=== PATIENT | female | born 1935 | race Caucasian/White ===

== ENCOUNTER 2017-03-30 09:42 | Inpatient (IN) | payer MEDICARE ==
[~2017-03-30] VITALS: Ht 154.9 cm; Wt 78.1 kg
--- NOTE | 2017-03-30 09:58 | EKG ---
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
[2017-03-30] MEDS ORDERED: IPRATRPIUM/ALBUTEROL 0.5/2.5MG 3 ML NEBU. NEB ONE (10:15)
[2017-03-30] MEDS ORDERED: fentaNYL PF VIAL 100 MCG/2 ML VIAL IV ONE (10:15)
[2017-03-30 10:19] LABS: BASO # 0.1 x10^3/uL (0.0-0.2); BASO % 2 % (0-3); EOS % 3 % (0-3); HEMATOCRIT 31.7 % (36.0-47.0); HEMOGLOBIN 10.7 g/dL (12.0-15.5); LYMPH # 1.1 x10^3/uL (1.0-4.8); LYMPH % 26 % (24-48); MEAN CORPUSCULAR HEMOGLOBIN 30 pg (25-35); MEAN CORPUSCULAR HGB CONC 34 g/dL (31-37); MEAN CORPUSCULAR VOLUME 90 fL (79-100); MONO % 8 % (0-9); NEUT % 62 % (31-73); PLATELET COUNT 216 x10^3/uL (140-400); RED BLOOD COUNT 3.53 x10^6/uL (3.50-5.40); RED CELL DISTRIBUTION WIDTH 15.9 % (11.5-14.5)
--- NOTE | 2017-03-30 10:24 | PHYS DOC ---
Past Medical History Past Medical History: CHF, GERD, High Cholesterol, Hypertension, Renal Failure , UTI, Other Additional Past Medical Histor: LYMPHEDEMA, COMMUNICATION COG DEFICIT Past Surgical History: Hip Replacement, Hysterectomy, Other Additional Past Surgical Histo: RECTAL PROLAPSE, KIDNEY TRANSPLANT, BILAT HIP REP, KIDNEY BIOPSY,R ARM FIST Alcohol Use: None Drug Use: None Adult General Chief Complaint Chief Complaint: SHORTNESS OF BREATH HPI HPI Patient is a 81 year old female presenting to the emergency department from [facility] for evaluation of chest pain and shortness of breath that started approximately 2 hours prior to arrival. Patient says that she was at rest and all this started and felt chest squeezing in the center for chest with no radiation that made her feel short of breath. There was no nausea vomiting or diaphoresis. Patient had surgery last week for prolapsed rectum. It appears she has had several recent falls as well as she has bruising on her right knee and significant swelling in her extremities. She says that she has a history of kidney transplant. She denies any heart problems such as heart attack or congestive heart failure. She says that she had normal heart catheterization and stress test approximately 12 years ago before her kidney transplant. She was given a full dose aspirin by EMS. She is in no obvious distress with normal vital signs. Review of Systems Review of Systems Constitutional: Denies fever or chills [] Eyes: Denies change in visual acuity, redness, or eye pain [] HENT: Denies nasal congestion or sore throat [] Respiratory: Denies cough. + shortness of breath [] Cardiovascular: +CP GI: Denies abdominal pain, nausea, vomiting, bloody stools or diarrhea [] : Denies dysuria or hematuria [] Musculoskeletal: Denies back pain or joint pain [] Integument: Denies rash or skin lesions [] Neurologic: Denies headache, focal weakness or sensory changes [] Current Medications Current Medications Current Medications Medications (Trade) Dose Ordered Sig/Pallavi Start Time Stop Time Status Last Admin Dose Admin Albuterol/ Ipratropium (Duoneb) 3 ml 1X ONCE 03/30/17 10:15 03/30/17 10:16 DC 03/30/17 10:03 3 ML Fentanyl Citrate (Fentanyl 2ml Vial) 50 mcg PRN Q1HR PRN 03/30/17 10:45 03/31/17 10:44 Heparin Sodium (Porcine) (Heparin 5,000 Units/1,000ml NS) 4,000 unit 1X ONCE 03/30/17 10:45 03/30/17 10:46 Cancel Heparin Sodium/ Dextrose 500 ml @ 0 mls/hr 1X ONCE 03/30/17 10:45 03/30/17 10:52 DC 03/30/17 11:38 19.9 MLS/HR Ondansetron HCl (Zofran) 4 mg PRN Q8HRS PRN 03/30/17 10:45 03/31/17 10:44 Allergies Allergies Allergies Coded Allergies Type Severity Reaction Last Updated Verified Iodine and Iodide Containing Produc Allergy Intermediate 03/30/17 Yes adhesive tape Allergy Intermediate RASH 03/30/17 Yes clarithromycin Allergy Intermediate 03/30/17 Yes erythromycin base Allergy Intermediate 03/30/17 Yes latex Allergy Intermediate RASH 03/30/17 Yes levofloxacin Allergy Intermediate 03/30/17 Yes povidone-iodine Allergy Intermediate 03/30/17 Yes soap Allergy Intermediate 03/30/17 Yes Physical Exam Physical Exam Constitutional: Well developed, well nourished, no acute distress, non-toxic appearance. [] HENT: Normocephalic, atraumatic, bilateral external ears normal, oropharynx moist, no oral exudates, nose normal. [] Eyes: PERRLA, EOMI, conjunctiva normal, no discharge. [] Neck: Normal range of motion, no tenderness, supple, no stridor. [] Cardiovascular:Heart rate regular rhythm, no murmur [] Lungs & Thorax: Bilateral breath sounds with good aeration, trace exp wheeze noted, few crackles Abdomen: Bowel sounds normal, soft, no tenderness, no masses, no pulsatile masses. [] Skin: Warm, dry, no erythema, no rash. [] Back: No tenderness, no CVA tenderness. [] Extremities: No tenderness, no cyanosis, no clubbing, ROM intact, 2+ edema BL. [ ] Neurologic: Alert and oriented X 3, normal motor function, normal sensory function, no focal deficits noted. [] Current Patient Data Vital Signs Vital Signs Date Time Temp Pulse Resp B/P (MAP) Pulse Ox O2 Delivery O2 Flow Rate FiO2 03/30/17 11:00 72 20 150/68 (95) 96 Room Air 03/30/17 09:42 99.2 99.2 Lab Values Laboratory Tests Test 03/30/17 09:50 03/30/17 10:40 White Blood Count 4.0 x10^3/uL (4.0-11.0) Red Blood Count 3.53 x10^6/uL (3.50-5.40) Hemoglobin 10.7 g/dL (12.0-15.5) L Hematocrit 31.7 % (36.0-47.0) L Mean Corpuscular Volume 90 fL (79-100) Mean Corpuscular Hemoglobin 30 pg (25-35) Mean Corpuscular Hemoglobin Concent 34 g/dL (31-37) Red Cell Distribution Width 15.9 % (11.5-14.5) H Platelet Count 216 x10^3/uL (140-400) Neutrophils (%) (Auto) 62 % (31-73) Lymphocytes (%) (Auto) 26 % (24-48) Monocytes (%) (Auto) 8 % (0-9) Eosinophils (%) (Auto) 3 % (0-3) Basophils (%) (Auto) 2 % (0-3) Neutrophils # (Auto) 2.5 x10^3uL (1.8-7.7) Lymphocytes # (Auto) 1.1 x10^3/uL (1.0-4.8) Monocytes # (Auto) 0.3 x10^3/uL (0.0-1.1) Eosinophils # (Auto) 0.1 x10^3/uL (0.0-0.7) Basophils # (Auto) 0.1 x10^3/uL (0.0-0.2) Prothrombin Time 12.5 SEC (11.7-14.0) Prothrombin Time INR 1.0 (0.8-1.1) PTT 27 SEC (24-38) D-Dimer (Gauri) 3.95 ug/mlFEU (0.00-0.50) H Sodium Level 141 mmol/L (136-145) Potassium Level 4.1 mmol/L (3.5-5.1) Chloride Level 107 mmol/L (98-107) Carbon Dioxide Level 25 mmol/L (21-32) Anion Gap 9 (6-14) Blood Urea Nitrogen 33 mg/dL (7-20) H Creatinine 1.5 mg/dL (0.6-1.0) H Estimated GFR (Cockcroft-Gault) 33.5 BUN/Creatinine Ratio 22 (6-20) H Glucose Level 130 mg/dL (70-99) H Calcium Level 8.4 mg/dL (8.5-10.1) L Magnesium Level 1.9 mg/dL (1.8-2.4) Total Bilirubin 0.5 mg/dL (0.2-1.0) Aspartate Amino Transferase (AST) 18 U/L (15-37) Alanine Aminotransferase (ALT) 15 U/L (14-59) Alkaline Phosphatase 49 U/L (46-116) Creatine Kinase 23 U/L (26-192) L Troponin I Quantitative 0.060 ng/mL (0.000-0.055) CQ-Uqg-V-Type Natriuretic Peptide 6608 pg/mL (0-449) H Total Protein 4.2 g/dL (6.4-8.2) L Albumin 1.9 g/dL (3.4-5.0) L Albumin/Globulin Ratio 0.8 (1.0-1.7) L Thyroid Stimulating Hormone (TSH) 4.019 uIU/mL (0.358-3.74) H Urine Collection Type U cath Urine Color Yellow Urine Clarity Turbid Urine pH 5.5 Urine Specific [place] 1.025 Urine Protein >=300 mg/dL (NEG-TRACE) Urine Glucose (UA) 100 mg/dL (NEG) Urine Ketones (Stick) Negative mg/dL (NEG) Urine Blood Negative (NEG) Urine Nitrite Negative (NEG) Urine Bilirubin Negative (NEG) Urine Urobilinogen Dipstick 0.2 mg/dL (0.2 mg/dL) Urine Leukocyte Esterase Negative (NEG) Urine RBC 0 /HPF (0-2) Urine WBC 0 /HPF (0-4) Urine Amorphous Sediment Present /HPF Urine Bacteria Few /HPF (0-FEW) Urine Hyaline Casts Moderate /HPF Laboratory Tests 03/30/17 09:50 Laboratory Tests 03/30/17 09:50 EKG EKG Normal sinus rhythm with normal axis less than [address] elevation noted in leads V2 V3 and V4 with inverted T waves in leads V5 and V6. No old available for comparison, Radiology/Procedures Radiology/Procedures Indication: Chest pain and short of air beginning this morning. Technique: Upright portable chest radiograph was obtained. No comparison is available. Findings: There is a small left pleural effusion suspected. There is also may be minimal right pleural effusion. The heart is not enlarged and there is no heart failure. There is atheromatous disease in the thoracic aorta. There is no focal airspace disease. Impression: Small left and minimal right pleural effusion suspected. DICTATED and SIGNED BY: ENRRIQUE ROMANO MD DATE: 03/30/17 1019 Course & Med Decision Making Course & Med Decision Making Patient has multiple issues going on at this time. Has typical features to her chest pain and has elevated troponin with some EKG changes. There was no obvious catheter lab activation criteria on EKG. Patient was given her aspirin and was started on a heparin drip. Patient has slightly elevated BNP and d- dimer as well which may be just from her surgery and fluid overload status. Pulmonary embolism is a consideration as well but she cannot get a CT angiogram due to her kidney status. We will order a VQ scan and as stated we'll treat with heparin for now. Pain is almost gone but still some tightness present. I spoke to Dr. Tsang and he is agreeable to admission. Patient admitted in stable condition. Dragon Disclaimer Dragon Disclaimer This electronic medical record was generated, in whole or in part, using a voice recognition dictation system. Departure Departure Impression: Primary Impression: NSTEMI (non-ST elevated myocardial infarction) Additional Impressions: Chest pain Elevated d-dimer Renal insufficiency Elevated brain natriuretic peptide (BNP) level Disposition: ADMITTED INPATIENT Admitting Physician: Waldemar Lema Condition: STABLE Problem Qualifiers CORTNEY SIMONS DO March 30, 2017 10:24
[2017-03-30 10:28] LABS: CALCIUM 8.4 mg/dL (8.5-10.1); CREATININE 1.5 mg/dL (0.6-1.0); GFR 33.5; POTASSIUM 4.1 mmol/L (3.5-5.1)
[2017-03-30 10:29] LABS: PROTHROMBIN TIME PATIENT 12.5 SEC (11.7-14.0)
[2017-03-30 10:33] LABS: ALBUMIN 1.9 g/dL (3.4-5.0); ALBUMIN/GLOBULIN RATIO 0.8 (1.0-1.7); MAGNESIUM 1.9 mg/dL (1.8-2.4); TOTAL BILIRUBIN 0.5 mg/dL (0.2-1.0); TOTAL PROTEIN 4.2 g/dL (6.4-8.2)
[2017-03-30] MEDS ORDERED: HEPARIN 25,000UTS/500ML PREMIX 500 ML IV ONE (10:45)
[2017-03-30] MEDS ORDERED: fentaNYL PF VIAL 100 MCG/2 ML VIAL IV PRN (10:45)
[2017-03-30] MEDS ORDERED: ONDANSETRON PF 4 MG/2 ML VIAL. IV PRN (10:45)
[2017-03-30 10:47] LABS: BILIRUBIN,URINE NEGATIVE (NEG); GLUCOSE,URINE 100 mg/dL (NEG); NITRITE,URINE NEGATIVE (NEG); PH,URINE 5.5; PROTEIN,URINE >=300 mg/dL (NEG-TRACE); UROBILINOGEN,URINE 0.2 mg/dL (0.2 mg/dL)
[2017-03-30 10:58] LABS: BACTERIA,URINE FEW /HPF (0-FEW); RBC,URINE 0 /HPF (0-2); WBC,URINE 0 /HPF (0-4)
[2017-03-30] MEDS ORDERED: HEPARIN for IV BOLUS 10,000 UNIT/10 ML VIAL. ONE (11:15)
[2017-03-30] MEDS ORDERED: HEPARIN for IV BOLUS 10,000 UNIT/10 ML VIAL. IV ONE (11:45)
[2017-03-30 12:00] VITALS: BP 190/86
--- NOTE | 2017-03-30 13:27 | ACF ---
Admission Forms Criteria MYOCARDIAL INFARCTION Clinical Indications for Admission to Inpatient Care (Place 'X' for any and all applicable criteria): Admission is indicated for 1 or more of the following (1)(2)(3)(4): [x]I. Acute [place] [ ]II. Contraindications and/or Inappropriate clinical situations for Observational Care in patients with Myocardial Infarction, when ANY ONE of the following is required: [ ]a) Patient with High risk of cardiac embolism (e.g, patients with previous cardiac embolism, LVEF < 40%, age >75 and patients with prosthetic valve) 18 [ ]b) Patient with Moderate risk including DM patient, CAD and patient aged 65-75 18 [ ]c) Patient with any change in cardiac biomarker especially troponin should be managed as high risk in an inpatient setting 19 [ ]d) Physician judgement irrespective of ECG and other diagnostic findings 20 [ ]III.General contraindications and/or Inappropriate clinical situations for Observational Care in patients with Myocardial Infarction, when ANY ONE of the following is required: [ ]a) Prediction of prolongation of LOS based on ANY ONE of the following may be considered as a contraindication for observational care 2, 3, 4, 5, 6, 7, 8, 9, 10, 11 [ ]i) Age > 65 yrs. [ ]ii) Patient arriving by ambulance [ ]iii) Patient with high acuity [ ]iv) Patient requiring vital sign monitoring [ ]v) Patient on IV medication [ ]b) Systolic blood pressures greater than or equal to 180mmHg 3,12 [ ]c) Patient with altered mental status including delirium and other alteration of consciousness, (3) [ ]d) Patient whose discharge disposition will be to a assisted home or rehabilitation home should not be managed in Emergency Department Observation Unit. CMS rule requires 3 days hospital stay before such placement. 3,13 [ ]e) Patient with failure to thrive due to broad array of etiologies 3 ,16,17 [ ]f) Inability to ambulate 3,14 Extended stay beyond goal length of stay may be needed for (1)(18)(20)(24)(25): [ ]a) Hemodynamic instability, persisting symptoms after intensive medical management, or recurring severe, prolonged symptoms [ ]b) Intravascular procedural complications such as acute vessel closure, stent thrombosis, stent malposition, or vessel dissection (26)(27)(28) [ ]c) Extravascular procedural complications such as retroperitoneal hematoma , pericardial effusion, or cardiac tamponade [ ]d) Entry site complications causing bleeding, hematoma or distal ischemia and requiring ongoing monitoring, surgical repair or surgical thrombectomy. Dangerous arrhythmia [ ]e) Complicated percutaneous coronary intervention (e.g., unsuccessful percutaneous coronary intervention or percutaneous coronary intervention of non- [place] vessel) [ ]f) Urgent or emergent surgery for complications of [place] (e.g., ventricular rupture, valvular insufficiency) [ ]g) Surgical revascularization via coronary artery bypass graft [ ]h) Heart failure (e.g., pulmonary edema) [ ]i) Unstable pulmonary comorbidities, including COPD or pneumonia (31) [ ]j) Acute renal failure The original [employer] content created by [facility] [employer] has been revised. The portions of the content which have been revised are identified through the use of italic text or in bold, and [facility] has neither reviewed nor approved the modified material. All other unmodified content is copyright [facility] Please see references footnoted in the original [facility] edition 2016 Admission Criteria Met?: Yes ADÁN RICHARDSON March 30, 2017 13:27
--- NOTE | 2017-03-30 13:37 | RAD ---
Indication: Chest pain and short of breath intermittently for months. Previous DVT. Patient is on heparin. Technique: Ventilation imaging utilized 14.4 mCi xenon-133 inhale. Perfusion imaging utilized 6.5 mCi technetium 99m MAA IV. Chest radiograph from today is available for comparison. Findings: There is homogeneous uptake of radiotracer on ventilation imaging with mild retention on washout phase. There is no matched or mismatched defect on perfusion imaging. Impression: Exam is low probability for pulmonary embolism. Air trapping.
[2017-03-30] MEDS ORDERED: BISACODYL 10 MG SUPP.RECT. RC PRN (14:30)
[2017-03-30] MEDS ORDERED: HYDROcodone/APAP 7.5/325MG 1 TAB TABLET PO PRN (14:30)
[2017-03-30] MEDS ORDERED: HYDR-2762 PO (15:46)
[2017-03-30] MEDS ORDERED: ATOR10TA60 PO (15:46)
[2017-03-30] MEDS ORDERED: PROP10TA PO (15:46)
[2017-03-30] MEDS ORDERED: FERR325C PO (15:46)
[2017-03-30] MEDS ORDERED: MYCO500T PO (15:46)
[2017-03-30] MEDS ORDERED: ACET325T9 PO (15:46)
[2017-03-30] MEDS ORDERED: CHOL10003 PO (15:46)
[2017-03-30] MEDS ORDERED: PRED2.5T PO (15:46)
[2017-03-30] MEDS ORDERED: CARV12.52 PO (15:46)
[2017-03-30] MEDS ORDERED: LEFLUNOMIDE20 MG PO (15:46)
[2017-03-30] MEDS ORDERED: ASPI-482 PO (15:46)
[2017-03-30] MEDS ORDERED: TACR1CAP4 PO ×2 (15:46)
[2017-03-30] MEDS ORDERED: PANT40GR PO (15:46)
[2017-03-30] MEDS ORDERED: BISA10SU55 RC (15:46)
[2017-03-30] MEDS ORDERED: ONDA4TAB10 SL (15:46)
[2017-03-30] MEDS ORDERED: CLON0.2T PO (15:46)
[2017-03-30] MEDS ORDERED: HYDR100T24 PO (15:46)
[2017-03-30 15:58] VITALS: BP 228/101
[2017-03-30] MEDS ORDERED: hydrALAZINE 20 MG/ML VIAL. IVP PRN (16:00)
[2017-03-30] MEDS ORDERED: FUROSEMIDE 40 MG/4 ML VIAL. IVP ONE (16:30)
--- NOTE | 2017-03-30 16:32 | PDOC1 ---
History and Physical Current Problem List Problem List Problems Medical Problems: (1) Chest pain Status: Acute (2) Elevated brain natriuretic peptide (BNP) level Status: Acute (3) Elevated d-dimer Status: Acute (4) Renal insufficiency Status: Acute Current Medications Current Medications Current Medications Medications (Trade) Dose Ordered Sig/Pallavi Start Time Stop Time Status Last Admin Dose Admin Acetaminophen (Tylenol) 325 mg Q6HRS 03/30/17 18:00 Acetaminophen/ Hydrocodone Bitart (Lortab 7.5/325) 1 tab PRN Q6HRS PRN 03/30/17 14:30 Albuterol/ Ipratropium (Duoneb) 3 ml 1X ONCE 03/30/17 10:15 03/30/17 10:16 DC 03/30/17 10:03 3 ML Aspirin (Ecotrin) 81 mg DAILY 03/31/17 09:00 Atorvastatin Calcium (Lipitor) 10 mg HS 03/30/17 21:00 Bisacodyl (Dulcolax Supp) 10 mg PRN DAILY PRN 03/30/17 14:30 Carvedilol (Coreg) 12.5 mg BIDWMEALS 03/30/17 17:00 Clonidine HCl (Catapres) 0.2 mg TID 03/30/17 21:00 Fentanyl Citrate (Fentanyl 2ml Vial) 50 mcg PRN Q1HR PRN 03/30/17 10:45 03/31/17 10:44 Ferrous Sulfate (Feosol) 325 mg DAILYWBKFT 03/31/17 08:00 Furosemide (Lasix) 40 mg 1X ONCE 03/30/17 16:30 03/30/17 16:31 Heparin Sodium (Porcine) (Heparin 5,000 Units/1,000ml NS) 4,000 unit 1X ONCE 03/30/17 10:45 03/30/17 10:46 Cancel Heparin Sodium (Porcine) (Heparin Sodium) 4,000 unit 1X ONCE 03/30/17 11:45 03/30/17 11:46 DC 03/30/17 11:41 4,000 UNIT Heparin Sodium/ Dextrose 500 ml @ 0 mls/hr 1X ONCE 03/30/17 10:45 03/30/17 10:52 DC 03/30/17 11:38 19.9 MLS/HR Hydralazine HCl (Apresoline) 10 mg PRN Q4HRS PRN 03/30/17 16:00 Leflunomide (Arava) 20 mg DAILY 03/30/17 16:30 Mycophenolate Mofetil (Cellcept) 500 mg DAILY 03/30/17 16:30 Ondansetron HCl (Zofran Odt) 4 mg Q6HRS 03/30/17 18:00 Ondansetron HCl (Zofran) 4 mg PRN Q8HRS PRN 03/30/17 10:45 03/31/17 10:44 Pantoprazole Sodium (Protonix) 40 mg DAILYAC 03/30/17 16:30 Prednisone (Prednisone) 5 mg DAILY 03/30/17 16:30 Propranolol HCl (Inderal) 10 mg BID 03/30/17 21:00 Tacrolimus (Prograf) 1 mg DAILY 03/31/17 09:00 Vitamin D (Vitamin D3) 2,000 unit DAILY 03/31/17 09:00 Allergies Allergies Allergies Coded Allergies Type Severity Reaction Last Updated Verified Iodine and Iodide Containing Produc Allergy Intermediate 03/30/17 Yes adhesive tape Allergy Intermediate RASH 03/30/17 Yes clarithromycin Allergy Intermediate 03/30/17 Yes erythromycin base Allergy Intermediate 03/30/17 Yes latex Allergy Intermediate RASH 03/30/17 Yes levofloxacin Allergy Intermediate 03/30/17 Yes povidone-iodine Allergy Intermediate 03/30/17 Yes soap Allergy Intermediate 03/30/17 Yes ROS Review of System CONSTITUTIONAL: No fever or chills EYES: No recent changes SKIN: No rash or itching CARDIOVASCULAR: No chest pain, syncope, palpitations, or edema RESPIRATORY: No SOB or cough GASTROINTESTINAL: No nausea, vomiting or abdominal pain NEUROLOGICAL: No headaches or weakness ENDOCRINE: No cold or heat intolerance GENITOURINARY: No urgency or frequency of urination MUSCULOSKELETAL: No back pain or joint pain LYMPHATICS: No enlarged lymph nodes PSYCHIATRIC: No anxiety or depression Physical Exam Physical Exam GEN.: No apparent distress. Alert and oriented. HEENT: Head is normocephalic, atraumatic NECK: Supple. LUNGS: Clear to auscultation. HEART: RRR, S1, S2 present. Peripheral pulses intact ABDOMEN: Soft, nontender. Positive bowel sounds. EXTREMITIES: Without any cyanosis. NEUROLOGIC: Normal speech, normal tone PSYCHIATRIC: Normal affect, normal mood. SKIN: No ulcerations Vitals Vitals Vital Signs Date Time Temp Pulse Resp B/P (MAP) Pulse Ox O2 Delivery O2 Flow Rate FiO2 03/30/17 15:58 98.8 71 17 228/101 (143) 95 Room Air 98.8 Labs Labs Laboratory Tests Test 03/30/17 09:50 03/30/17 10:40 White Blood Count 4.0 x10^3/uL (4.0-11.0) Red Blood Count 3.53 x10^6/uL (3.50-5.40) Hemoglobin 10.7 g/dL (12.0-15.5) Hematocrit 31.7 % (36.0-47.0) Mean Corpuscular Volume 90 fL (79-100) Mean Corpuscular Hemoglobin 30 pg (25-35) Mean Corpuscular Hemoglobin Concent 34 g/dL (31-37) Red Cell Distribution Width 15.9 % (11.5-14.5) Platelet Count 216 x10^3/uL (140-400) Neutrophils (%) (Auto) 62 % (31-73) Lymphocytes (%) (Auto) 26 % (24-48) Monocytes (%) (Auto) 8 % (0-9) Eosinophils (%) (Auto) 3 % (0-3) Basophils (%) (Auto) 2 % (0-3) Neutrophils # (Auto) 2.5 x10^3uL (1.8-7.7) Lymphocytes # (Auto) 1.1 x10^3/uL (1.0-4.8) Monocytes # (Auto) 0.3 x10^3/uL (0.0-1.1) Eosinophils # (Auto) 0.1 x10^3/uL (0.0-0.7) Basophils # (Auto) 0.1 x10^3/uL (0.0-0.2) Prothrombin Time 12.5 SEC (11.7-14.0) Prothromb Time International Ratio 1.0 (0.8-1.1) Activated Partial Thromboplast Time 27 SEC (24-38) D-Dimer (Gauri) 3.95 ug/mlFEU (0.00-0.50) Sodium Level 141 mmol/L (136-145) Potassium Level 4.1 mmol/L (3.5-5.1) Chloride Level 107 mmol/L (98-107) Carbon Dioxide Level 25 mmol/L (21-32) Anion Gap 9 (6-14) Blood Urea Nitrogen 33 mg/dL (7-20) Creatinine 1.5 mg/dL (0.6-1.0) Estimated GFR (Cockcroft-Gault) 33.5 BUN/Creatinine Ratio 22 (6-20) Glucose Level 130 mg/dL (70-99) Calcium Level 8.4 mg/dL (8.5-10.1) Magnesium Level 1.9 mg/dL (1.8-2.4) Total Bilirubin 0.5 mg/dL (0.2-1.0) Aspartate Amino Transf (AST/SGOT) 18 U/L (15-37) Alanine Aminotransferase (ALT/SGPT) 15 U/L (14-59) Alkaline Phosphatase 49 U/L (46-116) Creatine Kinase 23 U/L (26-192) Troponin I Quantitative 0.060 ng/mL (0.000-0.055) KE-Aky-K-Type Natriuretic Peptide 6608 pg/mL (0-449) Total Protein 4.2 g/dL (6.4-8.2) Albumin 1.9 g/dL (3.4-5.0) Albumin/Globulin Ratio 0.8 (1.0-1.7) Thyroid Stimulating Hormone (TSH) 4.019 uIU/mL (0.358-3.74) Urine Collection Type U cath Urine Color Yellow Urine Clarity Turbid Urine pH 5.5 Urine Specific [place] 1.025 Urine Protein >=300 mg/dL (NEG-TRACE) Urine Glucose (UA) 100 mg/dL (NEG) Urine Ketones (Stick) Negative mg/dL (NEG) Urine Blood Negative (NEG) Urine Nitrite Negative (NEG) Urine Bilirubin Negative (NEG) Urine Urobilinogen Dipstick 0.2 mg/dL (0.2 mg/dL) Urine Leukocyte Esterase Negative (NEG) Urine RBC 0 /HPF (0-2) Urine WBC 0 /HPF (0-4) Urine Amorphous Sediment Present /HPF Urine Bacteria Few /HPF (0-FEW) Urine Hyaline Casts Moderate /HPF Laboratory Tests Test 03/30/17 09:50 03/30/17 10:40 White Blood Count 4.0 x10^3/uL (4.0-11.0) Red Blood Count 3.53 x10^6/uL (3.50-5.40) Hemoglobin 10.7 g/dL (12.0-15.5) Hematocrit 31.7 % (36.0-47.0) Mean Corpuscular Volume 90 fL (79-100) Mean Corpuscular Hemoglobin 30 pg (25-35) Mean Corpuscular Hemoglobin Concent 34 g/dL (31-37) Red Cell Distribution Width 15.9 % (11.5-14.5) Platelet Count 216 x10^3/uL (140-400) Neutrophils (%) (Auto) 62 % (31-73) Lymphocytes (%) (Auto) 26 % (24-48) Monocytes (%) (Auto) 8 % (0-9) Eosinophils (%) (Auto) 3 % (0-3) Basophils (%) (Auto) 2 % (0-3) Neutrophils # (Auto) 2.5 x10^3uL (1.8-7.7) Lymphocytes # (Auto) 1.1 x10^3/uL (1.0-4.8) Monocytes # (Auto) 0.3 x10^3/uL (0.0-1.1) Eosinophils # (Auto) 0.1 x10^3/uL (0.0-0.7) Basophils # (Auto) 0.1 x10^3/uL (0.0-0.2) Prothrombin Time 12.5 SEC (11.7-14.0) Prothromb Time International Ratio 1.0 (0.8-1.1) Activated Partial Thromboplast Time 27 SEC (24-38) D-Dimer (Gauri) 3.95 ug/mlFEU (0.00-0.50) Sodium Level 141 mmol/L (136-145) Potassium Level 4.1 mmol/L (3.5-5.1) Chloride Level 107 mmol/L (98-107) Carbon Dioxide Level 25 mmol/L (21-32) Anion Gap 9 (6-14) Blood Urea Nitrogen 33 mg/dL (7-20) Creatinine 1.5 mg/dL (0.6-1.0) Estimated GFR (Cockcroft-Gault) 33.5 BUN/Creatinine Ratio 22 (6-20) Glucose Level 130 mg/dL (70-99) Calcium Level 8.4 mg/dL (8.5-10.1) Magnesium Level 1.9 mg/dL (1.8-2.4) Total Bilirubin 0.5 mg/dL (0.2-1.0) Aspartate Amino Transf (AST/SGOT) 18 U/L (15-37) Alanine Aminotransferase (ALT/SGPT) 15 U/L (14-59) Alkaline Phosphatase 49 U/L (46-116) Creatine Kinase 23 U/L (26-192) Troponin I Quantitative 0.060 ng/mL (0.000-0.055) ZY-Lxx-V-Type Natriuretic Peptide 6608 pg/mL (0-449) Total Protein 4.2 g/dL (6.4-8.2) Albumin 1.9 g/dL (3.4-5.0) Albumin/Globulin Ratio 0.8 (1.0-1.7) Thyroid Stimulating Hormone (TSH) 4.019 uIU/mL (0.358-3.74) Urine Collection Type U cath Urine Color Yellow Urine Clarity Turbid Urine pH 5.5 Urine Specific [place] 1.025 Urine Protein >=300 mg/dL (NEG-TRACE) Urine Glucose (UA) 100 mg/dL (NEG) Urine Ketones (Stick) Negative mg/dL (NEG) Urine Blood Negative (NEG) Urine Nitrite Negative (NEG) Urine Bilirubin Negative (NEG) Urine Urobilinogen Dipstick 0.2 mg/dL (0.2 mg/dL) Urine Leukocyte Esterase Negative (NEG) Urine RBC 0 /HPF (0-2) Urine WBC 0 /HPF (0-4) Urine Amorphous Sediment Present /HPF Urine Bacteria Few /HPF (0-FEW) Urine Hyaline Casts Moderate /HPF ROBBIN BECKER MD March 30, 2017 16:32
--- NOTE | 2017-03-30 16:39 | PDOC1 ---
History and Physical Current Problem List Problem List Problems Medical Problems: (1) Chest pain Status: Acute (2) Elevated brain natriuretic peptide (BNP) level Status: Acute (3) Elevated d-dimer Status: Acute (4) Renal insufficiency Status: Acute Current Medications Current Medications Current Medications Medications (Trade) Dose Ordered Sig/P[place] Start Time Stop Time Status Last Admin Dose Admin Acetaminophen (Tylenol) 325 mg Q6HRS 03/30/17 18:00 Acetaminophen/ Hydrocodone Bitart (Lortab 7.5/325) 1 tab PRN Q6HRS PRN 03/30/17 14:30 Albuterol/ Ipratropium (Duoneb) 3 ml 1X ONCE 03/30/17 10:15 03/30/17 10:16 DC 03/30/17 10:03 3 ML Aspirin (Ecotrin) 81 mg DAILY 03/31/17 09:00 Atorvastatin Calcium (Lipitor) 10 mg HS 03/30/17 21:00 Bisacodyl (Dulcolax Supp) 10 mg PRN DAILY PRN 03/30/17 14:30 Carvedilol (Coreg) 12.5 mg BIDWMEALS 03/30/17 17:00 Clonidine HCl (Catapres) 0.2 mg TID 03/30/17 21:00 Fentanyl Citrate (Fentanyl 2ml Vial) 50 mcg PRN Q1HR PRN 03/30/17 10:45 03/31/17 10:44 Ferrous Sulfate (Feosol) 325 mg DAILYWBKFT 03/31/17 08:00 Furosemide (Lasix) 40 mg 1X ONCE 03/30/17 16:30 03/30/17 16:31 DC 03/30/17 16:21 40 MG Heparin Sodium (Porcine) (Heparin 5,000 Units/1,000ml NS) 4,000 unit 1X ONCE 03/30/17 10:45 03/30/17 10:46 Cancel Heparin Sodium (Porcine) (Heparin Sodium) 4,000 unit 1X ONCE 03/30/17 11:45 03/30/17 11:46 DC 03/30/17 11:41 4,000 UNIT Heparin Sodium/ Dextrose 500 ml @ 0 mls/hr 1X ONCE 03/30/17 10:45 03/30/17 10:52 DC 03/30/17 11:38 19.9 MLS/HR Hydralazine HCl (Apresoline) 10 mg PRN Q4HRS PRN 03/30/17 16:00 03/30/17 16:21 10 MG Leflunomide (Arava) 20 mg DAILY 03/30/17 16:30 Mycophenolate Mofetil (Cellcept) 500 mg DAILY 03/30/17 16:30 Ondansetron HCl (Zofran Odt) 4 mg Q6HRS 03/30/17 18:00 Ondansetron HCl (Zofran) 4 mg PRN Q8HRS PRN 03/30/17 10:45 03/31/17 10:44 Pantoprazole Sodium (Protonix) 40 mg DAILYAC 03/30/17 16:30 Prednisone (Prednisone) 5 mg DAILY 03/30/17 16:30 Propranolol HCl (Inderal) 10 mg BID 03/30/17 21:00 Tacrolimus (Prograf) 1 mg DAILY 03/31/17 09:00 Vitamin D (Vitamin D3) 2,000 unit DAILY 03/31/17 09:00 Allergies Allergies Allergies Coded Allergies Type Severity Reaction Last Updated Verified Iodine and Iodide Containing Produc Allergy Intermediate 03/30/17 Yes adhesive tape Allergy Intermediate RASH 03/30/17 Yes clarithromycin Allergy Intermediate 03/30/17 Yes erythromycin base Allergy Intermediate 03/30/17 Yes latex Allergy Intermediate RASH 03/30/17 Yes levofloxacin Allergy Intermediate 03/30/17 Yes povidone-iodine Allergy Intermediate 03/30/17 Yes soap Allergy Intermediate 03/30/17 Yes ROS Review of System CONSTITUTIONAL: No fever or chills EYES: No recent changes SKIN: No rash or itching CARDIOVASCULAR: chest pain, no syncope, palpitations, or edema RESPIRATORY: No SOB or cough GASTROINTESTINAL: No nausea, vomiting or abdominal pain NEUROLOGICAL: No headaches or weakness ENDOCRINE: No cold or heat intolerance GENITOURINARY: No urgency or frequency of urination MUSCULOSKELETAL: No back pain or joint pain LYMPHATICS: No enlarged lymph nodes PSYCHIATRIC: No anxiety or depression Physical Exam Physical Exam GEN.: No apparent distress. Alert and oriented. HEENT: Head is normocephalic, atraumatic NECK: Supple. LUNGS: Clear to auscultation. HEART: RRR, S1, S2 present. Peripheral pulses intact ABDOMEN: Soft, nontender. Positive bowel sounds. EXTREMITIES: Without any cyanosis. mild edema NEUROLOGIC: Normal speech, normal tone PSYCHIATRIC: Normal affect, normal mood. SKIN: No ulcerations Vitals Vitals Vital Signs Date Time Temp Pulse Resp B/P (MAP) Pulse Ox O2 Delivery O2 Flow Rate FiO2 03/30/17 16:21 71 228/101 03/30/17 15:58 98.8 17 95 Room Air 98.8 Labs Labs Laboratory Tests Test 03/30/17 09:50 03/30/17 10:40 White Blood Count 4.0 x10^3/uL (4.0-11.0) Red Blood Count 3.53 x10^6/uL (3.50-5.40) Hemoglobin 10.7 g/dL (12.0-15.5) Hematocrit 31.7 % (36.0-47.0) Mean Corpuscular Volume 90 fL (79-100) Mean Corpuscular Hemoglobin 30 pg (25-35) Mean Corpuscular Hemoglobin Concent 34 g/dL (31-37) Red Cell Distribution Width 15.9 % (11.5-14.5) Platelet Count 216 x10^3/uL (140-400) Neutrophils (%) (Auto) 62 % (31-73) Lymphocytes (%) (Auto) 26 % (24-48) Monocytes (%) (Auto) 8 % (0-9) Eosinophils (%) (Auto) 3 % (0-3) Basophils (%) (Auto) 2 % (0-3) Neutrophils # (Auto) 2.5 x10^3uL (1.8-7.7) Lymphocytes # (Auto) 1.1 x10^3/uL (1.0-4.8) Monocytes # (Auto) 0.3 x10^3/uL (0.0-1.1) Eosinophils # (Auto) 0.1 x10^3/uL (0.0-0.7) Basophils # (Auto) 0.1 x10^3/uL (0.0-0.2) Prothrombin Time 12.5 SEC (11.7-14.0) Prothromb Time International Ratio 1.0 (0.8-1.1) Activated Partial Thromboplast Time 27 SEC (24-38) D-Dimer (Gauri) 3.95 ug/mlFEU (0.00-0.50) Sodium Level 141 mmol/L (136-145) Potassium Level 4.1 mmol/L (3.5-5.1) Chloride Level 107 mmol/L (98-107) Carbon Dioxide Level 25 mmol/L (21-32) Anion Gap 9 (6-14) Blood Urea Nitrogen 33 mg/dL (7-20) Creatinine 1.5 mg/dL (0.6-1.0) Estimated GFR (Cockcroft-Gault) 33.5 BUN/Creatinine Ratio 22 (6-20) Glucose Level 130 mg/dL (70-99) Calcium Level 8.4 mg/dL (8.5-10.1) Magnesium Level 1.9 mg/dL (1.8-2.4) Total Bilirubin 0.5 mg/dL (0.2-1.0) Aspartate Amino Transf (AST/SGOT) 18 U/L (15-37) Alanine Aminotransferase (ALT/SGPT) 15 U/L (14-59) Alkaline Phosphatase 49 U/L (46-116) Creatine Kinase 23 U/L (26-192) Troponin I Quantitative 0.060 ng/mL (0.000-0.055) AV-Twh-G-Type Natriuretic Peptide 6608 pg/mL (0-449) Total Protein 4.2 g/dL (6.4-8.2) Albumin 1.9 g/dL (3.4-5.0) Albumin/Globulin Ratio 0.8 (1.0-1.7) Thyroid Stimulating Hormone (TSH) 4.019 uIU/mL (0.358-3.74) Urine Collection Type U cath Urine Color Yellow Urine Clarity Turbid Urine pH 5.5 Urine Specific Boyle 1.025 Urine Protein >=300 mg/dL (NEG-TRACE) Urine Glucose (UA) 100 mg/dL (NEG) Urine Ketones (Stick) Negative mg/dL (NEG) Urine Blood Negative (NEG) Urine Nitrite Negative (NEG) Urine Bilirubin Negative (NEG) Urine Urobilinogen Dipstick 0.2 mg/dL (0.2 mg/dL) Urine Leukocyte Esterase Negative (NEG) Urine RBC 0 /HPF (0-2) Urine WBC 0 /HPF (0-4) Urine Amorphous Sediment Present /HPF Urine Bacteria Few /HPF (0-FEW) Urine Hyaline Casts Moderate /HPF Laboratory Tests Test 03/30/17 09:50 03/30/17 10:40 White Blood Count 4.0 x10^3/uL (4.0-11.0) Red Blood Count 3.53 x10^6/uL (3.50-5.40) Hemoglobin 10.7 g/dL (12.0-15.5) Hematocrit 31.7 % (36.0-47.0) Mean Corpuscular Volume 90 fL (79-100) Mean Corpuscular Hemoglobin 30 pg (25-35) Mean Corpuscular Hemoglobin Concent 34 g/dL (31-37) Red Cell Distribution Width 15.9 % (11.5-14.5) Platelet Count 216 x10^3/uL (140-400) Neutrophils (%) (Auto) 62 % (31-73) Lymphocytes (%) (Auto) 26 % (24-48) Monocytes (%) (Auto) 8 % (0-9) Eosinophils (%) (Auto) 3 % (0-3) Basophils (%) (Auto) 2 % (0-3) Neutrophils # (Auto) 2.5 x10^3uL (1.8-7.7) Lymphocytes # (Auto) 1.1 x10^3/uL (1.0-4.8) Monocytes # (Auto) 0.3 x10^3/uL (0.0-1.1) Eosinophils # (Auto) 0.1 x10^3/uL (0.0-0.7) Basophils # (Auto) 0.1 x10^3/uL (0.0-0.2) Prothrombin Time 12.5 SEC (11.7-14.0) Prothromb Time International Ratio 1.0 (0.8-1.1) Activated Partial Thromboplast Time 27 SEC (24-38) D-Dimer (Gauri) 3.95 ug/mlFEU (0.00-0.50) Sodium Level 141 mmol/L (136-145) Potassium Level 4.1 mmol/L (3.5-5.1) Chloride Level 107 mmol/L (98-107) Carbon Dioxide Level 25 mmol/L (21-32) Anion Gap 9 (6-14) Blood Urea Nitrogen 33 mg/dL (7-20) Creatinine 1.5 mg/dL (0.6-1.0) Estimated GFR (Cockcroft-Gault) 33.5 BUN/Creatinine Ratio 22 (6-20) Glucose Level 130 mg/dL (70-99) Calcium Level 8.4 mg/dL (8.5-10.1) Magnesium Level 1.9 mg/dL (1.8-2.4) Total Bilirubin 0.5 mg/dL (0.2-1.0) Aspartate Amino Transf (AST/SGOT) 18 U/L (15-37) Alanine Aminotransferase (ALT/SGPT) 15 U/L (14-59) Alkaline Phosphatase 49 U/L (46-116) Creatine Kinase 23 U/L (26-192) Troponin I Quantitative 0.060 ng/mL (0.000-0.055) WJ-Aib-U-Type Natriuretic Peptide 6608 pg/mL (0-449) Total Protein 4.2 g/dL (6.4-8.2) Albumin 1.9 g/dL (3.4-5.0) Albumin/Globulin Ratio 0.8 (1.0-1.7) Thyroid Stimulating Hormone (TSH) 4.019 uIU/mL (0.358-3.74) Urine Collection Type U cath Urine Color Yellow Urine Clarity Turbid Urine pH 5.5 Urine Specific Boyle 1.025 Urine Protein >=300 mg/dL (NEG-TRACE) Urine Glucose (UA) 100 mg/dL (NEG) Urine Ketones (Stick) Negative mg/dL (NEG) Urine Blood Negative (NEG) Urine Nitrite Negative (NEG) Urine Bilirubin Negative (NEG) Urine Urobilinogen Dipstick 0.2 mg/dL (0.2 mg/dL) Urine Leukocyte Esterase Negative (NEG) Urine RBC 0 /HPF (0-2) Urine WBC 0 /HPF (0-4) Urine Amorphous Sediment Present /HPF Urine Bacteria Few /HPF (0-FEW) Urine Hyaline Casts Moderate /HPF VTE Prophylaxis Ordered VTE Prophylaxis Devices: Yes VTE Pharmacological Prophylaxi: Yes ROBBIN BECKER MD March 30, 2017 16:39
[2017-03-30] MEDS ORDERED: HEPARIN 25,000UTS/500ML PREMIX 500 ML IV PRN (16:45)
[2017-03-30] MEDS ORDERED: HEPARIN for IV BOLUS 10,000 UNIT/10 ML VIAL. IV PRN (16:45)
[2017-03-30] MEDS: CARVEDILOL 12.5 MG TABLET. PO SCH (18:50)
[2017-03-30] MEDS: ACETAMINOPHEN 325 MG TABLET. PO SCH (18:50)
[2017-03-30] MEDS: PANTOPRAZOLE 40 MG TABLET.DR. PO SCH (18:50)
[2017-03-30] MEDS: ONDANSETRON ODT 4 MG TAB.RAPDIS. PO SCH (18:50)
[2017-03-30] MEDS: predniSONE 5 MG TABLET PO SCH (18:50)
[2017-03-30] MEDS: LEFLUNOMIDE 10 MG TABLET. PO SCH (18:51)
[2017-03-30] MEDS: MYCOPHENOLATE MOFETIL 250 MG CAPSULE. PO SCH (18:51)
[2017-03-30 19:00] VITALS: BP 177/89
[2017-03-30] MEDS: cloNIDine HCL 0.2 MG TABLET PO SCH (21:08)
[2017-03-30] MEDS: PROPRANOLOL 10 MG TABLET. PO SCH (21:08)
[2017-03-30] MEDS: TACROLIMUS 0.5 MG CAPSULE PO SCH (21:09)
[2017-03-30] MEDS: ATORVASTATIN CALCIUM 10 MG TABLET. PO SCH (21:09)
[2017-03-30 23:00] VITALS: BP 122/58
--- NOTE | 2017-03-31 00:07 | HP ---
ADMIT DATE: 03/30/2017 CHIEF COMPLAINT: Shortness of breath, chest pain. HISTORY OF PRESENT ILLNESS: This is a 81-year-old female patient brought to the hospital from [facility] senior care unit for chest pain and shortness of breath. The patient's symptoms started last night while she was sleeping and usually she described it as a chest pressure; however, symptoms subsided and again she felt some fleeting chest pain in the left side. Denies any radiation, nausea, vomiting or sweating. She had a complicated hospital course prior to her admission to senior care facility. She was at [facility] for nearly 2 weeks and prior to that she was at [facility] for rectal prolapse. The patient does not recall exact diagnosis or the reason why she was at [facility]; however, she admits that her heart is in good condition prior to that and she had a cardiac catheterization nearly 10 years ago. At that time, it was normal and also she had a renal transplant. She denies any other symptoms such as fever, chills, nausea or vomiting. PAST MEDICAL HISTORY: Hypertension, hyperlipidemia, GERD, questionable congestive heart failure, renal failure, lymphedema, hip replacement, hysterectomy. PAST SURGICAL HISTORY: Rectal prolapse, kidney transplant, bilateral hip replacement, kidney biopsy and right arm fistula. PERSONAL HISTORY: No smoking, no alcohol, no drug abuse. FAMILY HISTORY: Hypertension. REVIEW OF SYSTEMS: Please see my electronic H and P. PHYSICAL EXAMINATION: Please see my electronic H and P. LABORATORY FINDINGS: 1. WBC 4.0, hemoglobin 10.7, MCV is 90, platelets 216, lymphocytes 1.1, D-dimer 3.95. PT is 1.0. INR is 1.0. Sodium is 141, potassium 4.1, chloride is 107, carbon dioxide 25, gap 9, BUN is 33, creatinine 1.5, GFR is 33.5, magnesium is 1.9. AST, ALT and total bilirubin within normal limits. ProBNP is 6608. Albumin is 1.9. Urinalysis, color is yellow, protein more than 300, ketones negative, nitrite negative, leukoesterase is negative, bacteria few. 2. Her EKG, could not able to verify; however, per the ER report, ____ ST elevation noted in the lead V2, V3 and V4 and inverted T waves in V5 and V6. 3. Chest x-ray, mild right sided pleural effusion. No acute cardiac process. ASSESSMENT AND PLAN: 1. Chest pain, chest pressure, unclear etiology. Possible differentials Other differential diagnosis gastritis and esophageal dysmotility.ACS, PE 2. Elevated D-dimer. 3. Renal insufficiency with hx of renal transplant. 4. Elevated BNP. 5. Elevated troponin. 6. Accelerated HTN PLAN: 1. Currently, this patient has been on heparin GTT for the ACS protocol and we will get a total 3 sets of troponin. Cardiology has been consulted, been notified. 2. A V/Q scan with low probability for PE, could not able to get CTA due to her renal functions and renal transplant. 3. The patient's blood pressure is not controlled. I gave her 10 of IV hydralazine in the correction, blood pressure medication. If her blood pressure is not controlled, I will add 3 of IV hydralazine. 4. She did not get some of her home medication this morning, which could be contributing to her high blood pressure. 5. I did discuss with Dr. Magaña about the patient's clinical condition. He did not recommend transfer of the patient to [facility]. I received a call from [facility] for transfer of this patient; however, at this time, I do not see any reason for transfer as the patient is in stable condition and she has all the subspecialty help available here. Transfer has been initiated by correction without my knowledge. It was initiated after the patient was admitted to the hospital. 6. My plan has been explained to the patient, she agreed with the current plan. ROBBIN BECKER MD DR: SU/wilfredo JOB#: [id number] / [id number] IRINA
[2017-03-31 03:00] VITALS: BP 166/79
[2017-03-31 05:03] LABS: BASO # 0.1 x10^3/uL (0.0-0.2); BASO % 1 % (0-3); EOS % 1 % (0-3); HEMOGLOBIN 10.3 g/dL (12.0-15.5); LYMPH # 0.9 x10^3/uL (1.0-4.8); LYMPH % 21 % (24-48); MEAN CORPUSCULAR HEMOGLOBIN 31 pg (25-35); MEAN CORPUSCULAR HGB CONC 33 g/dL (31-37); MEAN CORPUSCULAR VOLUME 92 fL (79-100); MONO % 7 % (0-9); NEUT % 70 % (31-73); PLATELET COUNT 197 x10^3/uL (140-400); RED BLOOD COUNT 3.36 x10^6/uL (3.50-5.40); RED CELL DISTRIBUTION WIDTH 16.5 % (11.5-14.5); WHITE BLOOD COUNT 4.4 x10^3/uL (4.0-11.0)
[2017-03-31 05:17] LABS: CALCIUM 8.3 mg/dL (8.5-10.1); CREATININE 1.5 mg/dL (0.6-1.0); GFR 33.5; POTASSIUM 4.3 mmol/L (3.5-5.1)
[2017-03-31] MEDS: ONDANSETRON ODT 4 MG TAB.RAPDIS. PO SCH ×4 (06:28→18:00)
[2017-03-31] MEDS: ACETAMINOPHEN 325 MG TABLET. PO SCH ×4 (06:29→18:00)
[2017-03-31 07:00] VITALS: BP 142/74
[2017-03-31] MEDS: FERROUS SULFATE 325 MG TABLET. PO SCH (09:08)
[2017-03-31] MEDS: PANTOPRAZOLE 40 MG TABLET.DR. PO SCH (09:08)
[2017-03-31] MEDS: CHOLECALCIFEROL (VITAMIN D3) 1,000 UNIT TABLET PO SCH (09:08)
[2017-03-31] MEDS: predniSONE 5 MG TABLET PO SCH (09:08)
[2017-03-31] MEDS: ASPIRIN ENTERIC COATED 81 MG TABLET.DR. PO SCH (09:08)
[2017-03-31] MEDS: CARVEDILOL 12.5 MG TABLET. PO SCH ×2 (09:09→17:49)
[2017-03-31] MEDS: cloNIDine HCL 0.2 MG TABLET PO SCH ×3 (09:09→21:03)
[2017-03-31] MEDS: PROPRANOLOL 10 MG TABLET. PO SCH ×2 (09:09→21:02)
[2017-03-31 11:00] VITALS: BP 100/45
--- NOTE | 2017-03-31 11:02 | PDOC2 ---
CONSULT Date of Consult Date of Consult DATE: 03/31/17 TIME: 10:55 Reason for Consult Reason for Consult: RENAL TRANSPLANT Referring Physician Referring Physician: ROSITA Identification/Chief Complaint Chief Complaint CHEST PAIN Source Source: Chart review, Patient History of Present Illness Reason for Visit: THIS IS A 81 YR OLD ADMITTED WITH CHEST PAIN AND CURRENTLY UNDERGOING EVALUATION FOR THIS. HX NOTABLE FOR A RENAL TX IN 2006. SHE IS MAINTAINED ON PREDNISONE, PROGRAF AND CELLCEPT. 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 NO RECENT CHANGES IN ANY OF HER MEDS Past Medical History Cardiovascular: CHF, HTN, Hyperlipidemia Past Surgical History Past Surgical History RENAL TRANSPLANT 2006 Past Surgical History: Total hip replacement, Hysterectomy Family History Family History: No Significant Current Problem List Problem List Problems Medical Problems: (1) Chest pain Status: Acute (2) Elevated brain natriuretic peptide (BNP) level Status: Acute (3) Elevated d-dimer Status: Acute (4) Renal insufficiency Status: Acute Current Medications Current Medications Current Medications Fentanyl Citrate (Fentanyl 2ml Vial) 50 mcg 1X ONCE IV Last administered on 10:06; Start 03/30/17 at 10:15; Stop 03/30/17 at 10:16; Status DC Albuterol/ Ipratropium (Duoneb) 3 ml 1X ONCE NEB Last administered on 10:03; Start 03/30/17 at 10:15; Stop 03/30/17 at 10:16; Status DC Heparin Sodium (Porcine) (Heparin 5,000 Units/1,000ml NS) 4,000 unit 1X ONCE IV ; Start 03/30/17 at 10:45; Stop 03/30/17 at 10:46; Status Cancel Heparin Sodium/ Dextrose 500 ml @ 0 mls/hr 1X ONCE IV Last administered on 11:38; Start 03/30/17 at 10:45; Stop 03/30/17 at 10:52; Status DC Ondansetron HCl (Zofran) 4 mg PRN Q8HRS PRN IV NAUSEA/VOMITING; Start 03/30/17 at 10:45; Stop 03/31/17 at 10:44; Status DC Fentanyl Citrate (Fentanyl 2ml Vial) 50 mcg PRN Q1HR PRN IV PAIN; Start at 10:45; Stop 03/31/17 at 10:44; Status DC Heparin Sodium (Porcine) (Heparin Sodium) 10,000 unit STK-MED ONCE .ROUTE ; Start 03/30/17 at 11:15; Stop 03/30/17 at 11:16; Status DC Heparin Sodium (Porcine) (Heparin Sodium) 4,000 unit 1X ONCE IV Last administered on 03/30/17 11:41; Start 03/30/17 at 11:45; Stop 03/30/17 at 11:46 ; Status DC Acetaminophen (Tylenol) 325 mg Q6HRS PO Last administered on 03/31/17 06:29; Start 03/30/17 at 18:00 Aspirin (Ecotrin) 81 mg DAILY PO Last administered on 03/31/17 09:08; Start at 09:00 Atorvastatin Calcium (Lipitor) 10 mg HS PO Last administered on 03/30/17 21:09 ; Start 03/30/17 at 21:00 Bisacodyl (Dulcolax Supp) 10 mg PRN DAILY PRN RC CONSTIPATION; Start 03/30/17 at 14:30 Carvedilol (Coreg) 12.5 mg BIDWMEALS PO Last administered on 03/31/17 09:09; Start 03/30/17 at 17:00 Vitamin D (Vitamin D3) 2,000 unit DAILY PO Last administered on 03/31/17 09:08 ; Start 03/31/17 at 09:00 Clonidine HCl (Catapres) 0.2 mg TID PO Last administered on 03/31/17 09:09; Start 03/30/17 at 21:00 Acetaminophen/ Hydrocodone Bitart (Lortab 7.5/325) 1 tab PRN Q6HRS PRN PO PAIN ; Start 03/30/17 at 14:30 Ondansetron HCl (Zofran Odt) 4 mg Q6HRS PO Last administered on 03/31/17 06:28 ; Start 03/30/17 at 18:00 Propranolol HCl (Inderal) 10 mg BID PO Last administered on 03/31/17 09:09; Start 03/30/17 at 21:00 Tacrolimus (Prograf) 0.5 mg QHS PO Last administered on 03/30/17 21:09; Start 03/30/17 at 21:00 Tacrolimus (Prograf) 1 mg DAILY PO ; Start 03/31/17 at 09:00 Ferrous Sulfate (Feosol) 325 mg DAILYWBKFT PO Last administered on 03/31/17 09 :08; Start 03/31/17 at 08:00 Hydralazine HCl (Apresoline) 100 mg Q8HRS PO Last administered on 03/31/17 06: 29; Start 03/30/17 at 22:00 Leflunomide (Arava) 20 mg DAILY PO Last administered on 03/30/17 18:51; Start 03/30/17 at 16:30 Mycophenolate Mofetil (Cellcept) 500 mg DAILY PO Last administered on 18:51; Start 03/30/17 at 16:30 Pantoprazole Sodium (Protonix) 40 mg DAILYAC PO Last administered on 03/31/17 09:08; Start 03/30/17 at 16:30 Prednisone (Prednisone) 5 mg DAILY PO Last administered on 03/31/17 09:08; Start 03/30/17 at 16:30 Furosemide (Lasix) 40 mg 1X ONCE IVP Last administered on 03/30/17 16:21; Start 03/30/17 at 16:30; Stop 03/30/17 at 16:31; Status DC Hydralazine HCl (Apresoline) 10 mg PRN Q4HRS PRN IVP ELEVATED BP, SEE COMMENTS Last administered on 03/30/17 16:21; Start 03/30/17 at 16:00 Heparin Sodium/ Dextrose 500 ml @ 0 mls/hr CONT PRN IV SEE I/O RECORD; Start at 16:45 Heparin Sodium (Porcine) (Heparin Sodium) 1,950 unit PRN Q6HRS PRN IV FOR UFH LEVEL LESS THAN 0.2; Start 03/30/17 at 16:45 Active Scripts Active Reported Dulcolax (Bisacodyl) 10 Mg Supp.rect 10 Mg RC PRN DAILY PRN Tylenol (Acetaminophen) 325 Mg Tablet 325 Mg PO Q6HRS Atorvastatin Calcium 10 Mg Tablet 10 Mg PO HS Clonidine Hcl 0.2 Mg Tablet 1 Tab PO TID Hydrocodone-Apap 7.5-325 (Hydrocodone Bit/Acetaminophen) 1 Each Tablet 1 Tab PO PRN Q6HRS PRN Hydralazine Hcl 100 Mg Tablet 1 Tab PO Q8HRS Propranolol Hcl 10 Mg Tablet 1 Tab PO BID Cellcept (Mycophenolate Mofetil) 500 Mg Tablet 1 Tab PO DAILY Aspir 81 (Aspirin) 81 Mg Tablet.dr 1 Tab PO DAILY Prednisone 2.5 Mg Tablet 2 Tab PO DAILY Leflunomide 20 Mg Tablet 20 Mg PO DAILY Protonix (Pantoprazole Sodium) 40 Mg Granpkt.dr 40 Mg PO DAILY Vitamin D3 (Cholecalciferol (Vitamin D3)) 1,000 Unit Tablet 2 Tab PO DAILY Carvedilol 12.5 Mg Tablet 1 Tab PO BID Prograf (Tacrolimus) 1 Mg Capsule 0.5 Mg PO QHS Prograf (Tacrolimus) 1 Mg Capsule 1 Mg PO DAILY Iron (Ferrous Sulfate) 325 Mg Capsule.er 325 Mg PO QODAY Zofran Odt (Ondansetron) 4 Mg Tab.rapdis 1 Tab SL Q6HRS Allergies Allergies: Coded Allergies: Iodine and Iodide Containing Produc (Verified Allergy, Intermediate, ) adhesive tape (Verified Allergy, Intermediate, RASH, 03/30/17) clarithromycin (Verified Allergy, Intermediate, 03/30/17) erythromycin base (Verified Allergy, Intermediate, 03/30/17) latex (Verified Allergy, Intermediate, RASH, 03/30/17) levofloxacin (Verified Allergy, Intermediate, 03/30/17) povidone-iodine (Verified Allergy, Intermediate, 03/30/17) soap (Verified Allergy, Intermediate, 03/30/17) ROS General: YES: Fatigue PSYCHOLOGICAL ROS: YES: Anxiety Eyes: Yes Decreased vision HEENT: YES: Heacaches Respiratory: YES: Cough Cardiovascular: yes Chest Pain, yes Edema Gastrointestinal: Yes Constipation Musculoskeletal: Yes Muscular Weakness Neurological: Yes Weakness Skin: Yes Dry Skin Physical Exam General: Alert, Oriented X3, No acute distress HEENT: PERRLA Lungs: Clear to auscultation Heart: Regular rate Abdomen: Normal bowel sounds, Soft, No tenderness Extremities: No clubbing, Other (BILATERAL LE EDEMA WHICH IS CHRONIC) Neuro: Normal speech, Cranial nerves 3-12 NL Psych/Mental Status: Mental status NL, Mood NL Vitals VITALS Vital Signs Date Time Temp Pulse Resp B/P (MAP) Pulse Ox O2 Delivery O2 Flow Rate FiO2 03/31/17 09:09 79 142/74 03/31/17 07:00 97.5 17 93 Room Air 97.5 Labs Labs Laboratory Tests Test 03/30/17 09:50 03/30/17 10:40 03/30/17 16:40 03/30/17 21:45 White Blood Count 4.0 x10^3/uL (4.0-11.0) Red Blood Count 3.53 x10^6/uL (3.50-5.40) Hemoglobin 10.7 g/dL (12.0-15.5) Hematocrit 31.7 % (36.0-47.0) Mean Corpuscular Volume 90 fL (79-100) Mean Corpuscular Hemoglobin 30 pg (25-35) Mean Corpuscular Hemoglobin Concent 34 g/dL (31-37) Red Cell Distribution Width 15.9 % (11.5-14.5) Platelet Count 216 x10^3/uL (140-400) Neutrophils (%) (Auto) 62 % (31-73) Lymphocytes (%) (Auto) 26 % (24-48) Monocytes (%) (Auto) 8 % (0-9) Eosinophils (%) (Auto) 3 % (0-3) Basophils (%) (Auto) 2 % (0-3) Neutrophils # (Auto) 2.5 x10^3uL (1.8-7.7) Lymphocytes # (Auto) 1.1 x10^3/uL (1.0-4.8) Monocytes # (Auto) 0.3 x10^3/uL (0.0-1.1) Eosinophils # (Auto) 0.1 x10^3/uL (0.0-0.7) Basophils # (Auto) 0.1 x10^3/uL (0.0-0.2) Prothrombin Time 12.5 SEC (11.7-14.0) Prothromb Time International Ratio 1.0 (0.8-1.1) Activated Partial Thromboplast Time 27 SEC (24-38) D-Dimer (Gauri) 3.95 ug/mlFEU (0.00-0.50) Sodium Level 141 mmol/L (136-145) Potassium Level 4.1 mmol/L (3.5-5.1) Chloride Level 107 mmol/L (98-107) Carbon Dioxide Level 25 mmol/L (21-32) Anion Gap 9 (6-14) Blood Urea Nitrogen 33 mg/dL (7-20) Creatinine 1.5 mg/dL (0.6-1.0) Estimated GFR (Cockcroft-Gault) 33.5 BUN/Creatinine Ratio 22 (6-20) Glucose Level 130 mg/dL (70-99) Calcium Level 8.4 mg/dL (8.5-10.1) Magnesium Level 1.9 mg/dL (1.8-2.4) Total Bilirubin 0.5 mg/dL (0.2-1.0) Aspartate Amino Transf (AST/SGOT) 18 U/L (15-37) Alanine Aminotransferase (ALT/SGPT) 15 U/L (14-59) Alkaline Phosphatase 49 U/L (46-116) Creatine Kinase 23 U/L (26-192) Troponin I Quantitative 0.060 ng/mL (0.000-0.055) 0.053 ng/mL (0.000-0.055) LJ-Qba-K-Type Natriuretic Peptide 6608 pg/mL (0-449) Total Protein 4.2 g/dL (6.4-8.2) Albumin 1.9 g/dL (3.4-5.0) Albumin/Globulin Ratio 0.8 (1.0-1.7) Thyroid Stimulating Hormone (TSH) 4.019 uIU/mL (0.358-3.74) Urine Collection Type U cath Urine Color Yellow Urine Clarity Turbid Urine pH 5.5 Urine Specific [place] 1.025 Urine Protein >=300 mg/dL (NEG-TRACE) Urine Glucose (UA) 100 mg/dL (NEG) Urine Ketones (Stick) Negative mg/dL (NEG) Urine Blood Negative (NEG) Urine Nitrite Negative (NEG) Urine Bilirubin Negative (NEG) Urine Urobilinogen Dipstick 0.2 mg/dL (0.2 mg/dL) Urine Leukocyte Esterase Negative (NEG) Urine RBC 0 /HPF (0-2) Urine WBC 0 /HPF (0-4) Urine Amorphous Sediment Present /HPF Urine Bacteria Few /HPF (0-FEW) Urine Hyaline Casts Moderate /HPF Heparin Anti-Xa Act, Unfractionated 0.68 IU/mL (0.30-0.70) Test 03/30/17 22:50 5/21/17 04:36 Troponin I Quantitative 0.062 ng/mL (0.000-0.055) 0.037 ng/mL (0.000-0.055) White Blood Count 4.4 x10^3/uL (4.0-11.0) Red Blood Count 3.36 x10^6/uL (3.50-5.40) Hemoglobin 10.3 g/dL (12.0-15.5) Hematocrit 31.0 % (36.0-47.0) Mean Corpuscular Volume 92 fL (79-100) Mean Corpuscular Hemoglobin 31 pg (25-35) Mean Corpuscular Hemoglobin Concent 33 g/dL (31-37) Red Cell Distribution Width 16.5 % (11.5-14.5) Platelet Count 197 x10^3/uL (140-400) Neutrophils (%) (Auto) 70 % (31-73) Lymphocytes (%) (Auto) 21 % (24-48) Monocytes (%) (Auto) 7 % (0-9) Eosinophils (%) (Auto) 1 % (0-3) Basophils (%) (Auto) 1 % (0-3) Neutrophils # (Auto) 3.1 x10^3uL (1.8-7.7) Lymphocytes # (Auto) 0.9 x10^3/uL (1.0-4.8) Monocytes # (Auto) 0.3 x10^3/uL (0.0-1.1) Eosinophils # (Auto) 0.0 x10^3/uL (0.0-0.7) Basophils # (Auto) 0.1 x10^3/uL (0.0-0.2) Heparin Anti-Xa Act, Unfractionated 0.63 IU/mL (0.30-0.70) Sodium Level 138 mmol/L (136-145) Potassium Level 4.3 mmol/L (3.5-5.1) Chloride Level 108 mmol/L (98-107) Carbon Dioxide Level 21 mmol/L (21-32) Anion Gap 9 (6-14) Blood Urea Nitrogen 36 mg/dL (7-20) Creatinine 1.5 mg/dL (0.6-1.0) Estimated GFR (Cockcroft-Gault) 33.5 Glucose Level 130 mg/dL (70-99) Calcium Level 8.3 mg/dL (8.5-10.1) Magnesium Level 1.8 mg/dL (1.8-2.4) Laboratory Tests Test 03/30/17 16:40 03/30/17 21:45 03/30/17 22:50 03/31/17 04:36 Troponin I Quantitative 0.053 ng/mL (0.000-0.055) 0.062 ng/mL (0.000-0.055) 0.037 ng/mL (0.000-0.055) Heparin Anti-Xa Act, Unfractionated 0.68 IU/mL (0.30-0.70) 0.63 IU/mL (0.30-0.70) White Blood Count 4.4 x10^3/uL (4.0-11.0) Red Blood Count 3.36 x10^6/uL (3.50-5.40) Hemoglobin 10.3 g/dL (12.0-15.5) Hematocrit 31.0 % (36.0-47.0) Mean Corpuscular Volume 92 fL (79-100) Mean Corpuscular Hemoglobin 31 pg (25-35) Mean Corpuscular Hemoglobin Concent 33 g/dL (31-37) Red Cell Distribution Width 16.5 % (11.5-14.5) Platelet Count 197 x10^3/uL (140-400) Neutrophils (%) (Auto) 70 % (31-73) Lymphocytes (%) (Auto) 21 % (24-48) Monocytes (%) (Auto) 7 % (0-9) Eosinophils (%) (Auto) 1 % (0-3) Basophils (%) (Auto) 1 % (0-3) Neutrophils # (Auto) 3.1 x10^3uL (1.8-7.7) Lymphocytes # (Auto) 0.9 x10^3/uL (1.0-4.8) Monocytes # (Auto) 0.3 x10^3/uL (0.0-1.1) Eosinophils # (Auto) 0.0 x10^3/uL (0.0-0.7) Basophils # (Auto) 0.1 x10^3/uL (0.0-0.2) Sodium Level 138 mmol/L (136-145) Potassium Level 4.3 mmol/L (3.5-5.1) Chloride Level 108 mmol/L (98-107) Carbon Dioxide Level 21 mmol/L (21-32) Anion Gap 9 (6-14) Blood Urea Nitrogen 36 mg/dL (7-20) Creatinine 1.5 mg/dL (0.6-1.0) Estimated GFR (Cockcroft-Gault) 33.5 Glucose Level 130 mg/dL (70-99) Calcium Level 8.3 mg/dL (8.5-10.1) Magnesium Level 1.8 mg/dL (1.8-2.4) Assessment/Plan Assessment/Plan IMP CHEST PAIN HX RENAL TX IN 2006 STABLE CHRONIC ALLOGRAFT NEPHROPATHY WITH CR OF 1.5 CHRONIC IMMUNOSUPPRESSION HTN - IMPROVED CHRONIC LE LYMPHEDEMA PLAN CHEST PAIN W/U CONT WITH PROGRAF CONT WITH CELLCEPT AND PREDNISON IF CARDIAC W/U IS NEG THEN DISCHARGE PT SHE IS STABLE WITH RESPECT TO HER RENAL TX D/W ATTENDING BRIAN MEDINA MD March 31, 2017 11:02
--- NOTE | 2017-03-31 11:09 | PDOC ---
PROGRESS NOTES Chief Complaint Chief Complaint 1. Chest pain, chest pressure, unclear etiology. Possible differentials Other differential diagnosis gastritis and esophageal dysmotility. ACS Ruled out , Echo pending, cardiology following. 2. Elevated D-dimer: VQ Negative, 3. Renal insufficiency: stable renal functions, DC planning today 4. Elevated BNP. 5. Physical debility: need SNU placement, d/w daughter at bedside, agree with current paln. 6. HTN: Stable Vitals Vitals Vital Signs Date Time Temp Pulse Resp B/P (MAP) Pulse Ox O2 Delivery O2 Flow Rate FiO2 03/31/17 09:09 79 142/74 03/31/17 07:00 97.5 17 93 Room Air 97.5 Physical Exam General: Alert, Oriented X3, Cooperative, No acute distress Heart: Regular rate, Normal S1, Normal S2 Lungs: Clear Abdomen: Normal bowel sounds, Soft, No tenderness Extremities: No clubbing, Other (BILATERAL LE EDEMA WHICH IS CHRONIC) Labs LABS Laboratory Tests Test 03/30/17 16:40 03/30/17 21:45 03/30/17 22:50 03/31/17 04:36 Troponin I Quantitative 0.053 ng/mL (0.000-0.055) 0.062 ng/mL (0.000-0.055) 0.037 ng/mL (0.000-0.055) Heparin Anti-Xa Act, Unfractionated 0.68 IU/mL (0.30-0.70) 0.63 IU/mL (0.30-0.70) White Blood Count 4.4 x10^3/uL (4.0-11.0) Red Blood Count 3.36 x10^6/uL (3.50-5.40) Hemoglobin 10.3 g/dL (12.0-15.5) Hematocrit 31.0 % (36.0-47.0) Mean Corpuscular Volume 92 fL (79-100) Mean Corpuscular Hemoglobin 31 pg (25-35) Mean Corpuscular Hemoglobin Concent 33 g/dL (31-37) Red Cell Distribution Width 16.5 % (11.5-14.5) Platelet Count 197 x10^3/uL (140-400) Neutrophils (%) (Auto) 70 % (31-73) Lymphocytes (%) (Auto) 21 % (24-48) Monocytes (%) (Auto) 7 % (0-9) Eosinophils (%) (Auto) 1 % (0-3) Basophils (%) (Auto) 1 % (0-3) Neutrophils # (Auto) 3.1 x10^3uL (1.8-7.7) Lymphocytes # (Auto) 0.9 x10^3/uL (1.0-4.8) Monocytes # (Auto) 0.3 x10^3/uL (0.0-1.1) Eosinophils # (Auto) 0.0 x10^3/uL (0.0-0.7) Basophils # (Auto) 0.1 x10^3/uL (0.0-0.2) Sodium Level 138 mmol/L (136-145) Potassium Level 4.3 mmol/L (3.5-5.1) Chloride Level 108 mmol/L (98-107) Carbon Dioxide Level 21 mmol/L (21-32) Anion Gap 9 (6-14) Blood Urea Nitrogen 36 mg/dL (7-20) Creatinine 1.5 mg/dL (0.6-1.0) Estimated GFR (Cockcroft-Gault) 33.5 Glucose Level 130 mg/dL (70-99) Calcium Level 8.3 mg/dL (8.5-10.1) Magnesium Level 1.8 mg/dL (1.8-2.4) Assessment and Plan Assessmemt and Plan Problems Medical Problems: (1) Chest pain Status: Acute (2) Elevated brain natriuretic peptide (BNP) level Status: Acute (3) Elevated d-dimer Status: Acute (4) Renal insufficiency Status: Acute Problems: Comment Review of Relevant I have reviewed the following items manav (where applicable) has been applied. Labs Laboratory Tests Test 03/30/17 09:50 03/30/17 10:40 03/30/17 16:40 03/30/17 21:45 White Blood Count 4.0 x10^3/uL (4.0-11.0) Red Blood Count 3.53 x10^6/uL (3.50-5.40) Hemoglobin 10.7 g/dL (12.0-15.5) Hematocrit 31.7 % (36.0-47.0) Mean Corpuscular Volume 90 fL (79-100) Mean Corpuscular Hemoglobin 30 pg (25-35) Mean Corpuscular Hemoglobin Concent 34 g/dL (31-37) Red Cell Distribution Width 15.9 % (11.5-14.5) Platelet Count 216 x10^3/uL (140-400) Neutrophils (%) (Auto) 62 % (31-73) Lymphocytes (%) (Auto) 26 % (24-48) Monocytes (%) (Auto) 8 % (0-9) Eosinophils (%) (Auto) 3 % (0-3) Basophils (%) (Auto) 2 % (0-3) Neutrophils # (Auto) 2.5 x10^3uL (1.8-7.7) Lymphocytes # (Auto) 1.1 x10^3/uL (1.0-4.8) Monocytes # (Auto) 0.3 x10^3/uL (0.0-1.1) Eosinophils # (Auto) 0.1 x10^3/uL (0.0-0.7) Basophils # (Auto) 0.1 x10^3/uL (0.0-0.2) Prothrombin Time 12.5 SEC (11.7-14.0) Prothromb Time International Ratio 1.0 (0.8-1.1) Activated Partial Thromboplast Time 27 SEC (24-38) D-Dimer (Gauri) 3.95 ug/mlFEU (0.00-0.50) Sodium Level 141 mmol/L (136-145) Potassium Level 4.1 mmol/L (3.5-5.1) Chloride Level 107 mmol/L (98-107) Carbon Dioxide Level 25 mmol/L (21-32) Anion Gap 9 (6-14) Blood Urea Nitrogen 33 mg/dL (7-20) Creatinine 1.5 mg/dL (0.6-1.0) Estimated GFR (Cockcroft-Gault) 33.5 BUN/Creatinine Ratio 22 (6-20) Glucose Level 130 mg/dL (70-99) Calcium Level 8.4 mg/dL (8.5-10.1) Magnesium Level 1.9 mg/dL (1.8-2.4) Total Bilirubin 0.5 mg/dL (0.2-1.0) Aspartate Amino Transf (AST/SGOT) 18 U/L (15-37) Alanine Aminotransferase (ALT/SGPT) 15 U/L (14-59) Alkaline Phosphatase 49 U/L (46-116) Creatine Kinase 23 U/L (26-192) Troponin I Quantitative 0.060 ng/mL (0.000-0.055) 0.053 ng/mL (0.000-0.055) HU-Ezc-Y-Type Natriuretic Peptide 6608 pg/mL (0-449) Total Protein 4.2 g/dL (6.4-8.2) Albumin 1.9 g/dL (3.4-5.0) Albumin/Globulin Ratio 0.8 (1.0-1.7) Thyroid Stimulating Hormone (TSH) 4.019 uIU/mL (0.358-3.74) Urine Collection Type U cath Urine Color Yellow Urine Clarity Turbid Urine pH 5.5 Urine Specific [place] 1.025 Urine Protein >=300 mg/dL (NEG-TRACE) Urine Glucose (UA) 100 mg/dL (NEG) Urine Ketones (Stick) Negative mg/dL (NEG) Urine Blood Negative (NEG) Urine Nitrite Negative (NEG) Urine Bilirubin Negative (NEG) Urine Urobilinogen Dipstick 0.2 mg/dL (0.2 mg/dL) Urine Leukocyte Esterase Negative (NEG) Urine RBC 0 /HPF (0-2) Urine WBC 0 /HPF (0-4) Urine Amorphous Sediment Present /HPF Urine Bacteria Few /HPF (0-FEW) Urine Hyaline Casts Moderate /HPF Heparin Anti-Xa Act, Unfractionated 0.68 IU/mL (0.30-0.70) Test 03/30/17 22:50 03/31/17 04:36 Troponin I Quantitative 0.062 ng/mL (0.000-0.055) 0.037 ng/mL (0.000-0.055) White Blood Count 4.4 x10^3/uL (4.0-11.0) Red Blood Count 3.36 x10^6/uL (3.50-5.40) Hemoglobin 10.3 g/dL (12.0-15.5) Hematocrit 31.0 % (36.0-47.0) Mean Corpuscular Volume 92 fL (79-100) Mean Corpuscular Hemoglobin 31 pg (25-35) Mean Corpuscular Hemoglobin Concent 33 g/dL (31-37) Red Cell Distribution Width 16.5 % (11.5-14.5) Platelet Count 197 x10^3/uL (140-400) Neutrophils (%) (Auto) 70 % (31-73) Lymphocytes (%) (Auto) 21 % (24-48) Monocytes (%) (Auto) 7 % (0-9) Eosinophils (%) (Auto) 1 % (0-3) Basophils (%) (Auto) 1 % (0-3) Neutrophils # (Auto) 3.1 x10^3uL (1.8-7.7) Lymphocytes # (Auto) 0.9 x10^3/uL (1.0-4.8) Monocytes # (Auto) 0.3 x10^3/uL (0.0-1.1) Eosinophils # (Auto) 0.0 x10^3/uL (0.0-0.7) Basophils # (Auto) 0.1 x10^3/uL (0.0-0.2) Heparin Anti-Xa Act, Unfractionated 0.63 IU/mL (0.30-0.70) Sodium Level 138 mmol/L (136-145) Potassium Level 4.3 mmol/L (3.5-5.1) Chloride Level 108 mmol/L (98-107) Carbon Dioxide Level 21 mmol/L (21-32) Anion Gap 9 (6-14) Blood Urea Nitrogen 36 mg/dL (7-20) Creatinine 1.5 mg/dL (0.6-1.0) Estimated GFR (Cockcroft-Gault) 33.5 Glucose Level 130 mg/dL (70-99) Calcium Level 8.3 mg/dL (8.5-10.1) Magnesium Level 1.8 mg/dL (1.8-2.4) Laboratory Tests Test 03/30/17 16:40 03/30/17 21:45 03/30/17 22:50 03/31/17 04:36 Troponin I Quantitative 0.053 ng/mL (0.000-0.055) 0.062 ng/mL (0.000-0.055) 0.037 ng/mL (0.000-0.055) Heparin Anti-Xa Act, Unfractionated 0.68 IU/mL (0.30-0.70) 0.63 IU/mL (0.30-0.70) White Blood Count 4.4 x10^3/uL (4.0-11.0) Red Blood Count 3.36 x10^6/uL (3.50-5.40) Hemoglobin 10.3 g/dL (12.0-15.5) Hematocrit 31.0 % (36.0-47.0) Mean Corpuscular Volume 92 fL (79-100) Mean Corpuscular Hemoglobin 31 pg (25-35) Mean Corpuscular Hemoglobin Concent 33 g/dL (31-37) Red Cell Distribution Width 16.5 % (11.5-14.5) Platelet Count 197 x10^3/uL (140-400) Neutrophils (%) (Auto) 70 % (31-73) Lymphocytes (%) (Auto) 21 % (24-48) Monocytes (%) (Auto) 7 % (0-9) Eosinophils (%) (Auto) 1 % (0-3) Basophils (%) (Auto) 1 % (0-3) Neutrophils # (Auto) 3.1 x10^3uL (1.8-7.7) Lymphocytes # (Auto) 0.9 x10^3/uL (1.0-4.8) Monocytes # (Auto) 0.3 x10^3/uL (0.0-1.1) Eosinophils # (Auto) 0.0 x10^3/uL (0.0-0.7) Basophils # (Auto) 0.1 x10^3/uL (0.0-0.2) Sodium Level 138 mmol/L (136-145) Potassium Level 4.3 mmol/L (3.5-5.1) Chloride Level 108 mmol/L (98-107) Carbon Dioxide Level 21 mmol/L (21-32) Anion Gap 9 (6-14) Blood Urea Nitrogen 36 mg/dL (7-20) Creatinine 1.5 mg/dL (0.6-1.0) Estimated GFR (Cockcroft-Gault) 33.5 Glucose Level 130 mg/dL (70-99) Calcium Level 8.3 mg/dL (8.5-10.1) Magnesium Level 1.8 mg/dL (1.8-2.4) Medications Current Medications Fentanyl Citrate (Fentanyl 2ml Vial) 50 mcg 1X ONCE IV Last administered on 10:06; Start 03/30/17 at 10:15; Stop 03/30/17 at 10:16; Status DC Albuterol/ Ipratropium (Duoneb) 3 ml 1X ONCE NEB Last administered on 10:03; Start 03/30/17 at 10:15; Stop 03/30/17 at 10:16; Status DC Heparin Sodium (Porcine) (Heparin 5,000 Units/1,000ml NS) 4,000 unit 1X ONCE IV ; Start 03/30/17 at 10:45; Stop 03/30/17 at 10:46; Status Cancel Heparin Sodium/ Dextrose 500 ml @ 0 mls/hr 1X ONCE IV Last administered on 11:38; Start 03/30/17 at 10:45; Stop 03/30/17 at 10:52; Status DC Ondansetron HCl (Zofran) 4 mg PRN Q8HRS PRN IV NAUSEA/VOMITING; Start 03/30/17 at 10:45; Stop 03/31/17 at 10:44; Status DC Fentanyl Citrate (Fentanyl 2ml Vial) 50 mcg PRN Q1HR PRN IV PAIN; Start at 10:45; Stop 03/31/17 at 10:44; Status DC Heparin Sodium (Porcine) (Heparin Sodium) 10,000 unit STK-MED ONCE .ROUTE ; Start 03/30/17 at 11:15; Stop 03/30/17 at 11:16; Status DC Heparin Sodium (Porcine) (Heparin Sodium) 4,000 unit 1X ONCE IV Last administered on 03/30/17 11:41; Start 03/30/17 at 11:45; Stop 03/30/17 at 11:46 ; Status DC Acetaminophen (Tylenol) 325 mg Q6HRS PO Last administered on 03/31/17 06:29; Start 03/30/17 at 18:00 Aspirin (Ecotrin) 81 mg DAILY PO Last administered on 03/31/17 09:08; Start at 09:00 Atorvastatin Calcium (Lipitor) 10 mg HS PO Last administered on 03/30/17 21:09 ; Start 03/30/17 at 21:00 Bisacodyl (Dulcolax Supp) 10 mg PRN DAILY PRN RC CONSTIPATION; Start 03/30/17 at 14:30 Carvedilol (Coreg) 12.5 mg BIDWMEALS PO Last administered on 03/31/17 09:09; Start 03/30/17 at 17:00 Vitamin D (Vitamin D3) 2,000 unit DAILY PO Last administered on 03/31/17 09:08 ; Start 03/31/17 at 09:00 Clonidine HCl (Catapres) 0.2 mg TID PO Last administered on 03/31/17 09:09; Start 03/30/17 at 21:00 Acetaminophen/ Hydrocodone Bitart (Lortab 7.5/325) 1 tab PRN Q6HRS PRN PO PAIN ; Start 03/30/17 at 14:30 Ondansetron HCl (Zofran Odt) 4 mg Q6HRS PO Last administered on 03/31/17 06:28 ; Start 03/30/17 at 18:00 Propranolol HCl (Inderal) 10 mg BID PO Last administered on 03/31/17 09:09; Start 03/30/17 at 21:00 Tacrolimus (Prograf) 0.5 mg QHS PO Last administered on 03/30/17 21:09; Start 03/30/17 at 21:00 Tacrolimus (Prograf) 1 mg DAILY PO ; Start 03/31/17 at 09:00 Ferrous Sulfate (Feosol) 325 mg DAILYWBKFT PO Last administered on 03/31/17 09 :08; Start 03/31/17 at 08:00 Hydralazine HCl (Apresoline) 100 mg Q8HRS PO Last administered on 03/31/17 06: 29; Start 03/30/17 at 22:00 Leflunomide (Arava) 20 mg DAILY PO Last administered on 03/30/17 18:51; Start 03/30/17 at 16:30 Mycophenolate Mofetil (Cellcept) 500 mg DAILY PO Last administered on 18:51; Start 03/30/17 at 16:30 Pantoprazole Sodium (Protonix) 40 mg DAILYAC PO Last administered on 03/31/17 09:08; Start 03/30/17 at 16:30 Prednisone (Prednisone) 5 mg DAILY PO Last administered on 03/31/17 09:08; Start 03/30/17 at 16:30 Furosemide (Lasix) 40 mg 1X ONCE IVP Last administered on 03/30/17 16:21; Start 03/30/17 at 16:30; Stop 03/30/17 at 16:31; Status DC Hydralazine HCl (Apresoline) 10 mg PRN Q4HRS PRN IVP ELEVATED BP, SEE COMMENTS Last administered on 03/30/17 16:21; Start 03/30/17 at 16:00 Heparin Sodium/ Dextrose 500 ml @ 0 mls/hr CONT PRN IV SEE I/O RECORD; Start at 16:45 Heparin Sodium (Porcine) (Heparin Sodium) 1,950 unit PRN Q6HRS PRN IV FOR UFH LEVEL LESS THAN 0.2; Start 03/30/17 at 16:45 Active Scripts Active Reported Dulcolax (Bisacodyl) 10 Mg Supp.rect 10 Mg RC PRN DAILY PRN Tylenol (Acetaminophen) 325 Mg Tablet 325 Mg PO Q6HRS Atorvastatin Calcium 10 Mg Tablet 10 Mg PO HS Clonidine Hcl 0.2 Mg Tablet 1 Tab PO TID Hydrocodone-Apap 7.5-325 (Hydrocodone Bit/Acetaminophen) 1 Each Tablet 1 Tab PO PRN Q6HRS PRN Hydralazine Hcl 100 Mg Tablet 1 Tab PO Q8HRS Propranolol Hcl 10 Mg Tablet 1 Tab PO BID Cellcept (Mycophenolate Mofetil) 500 Mg Tablet 1 Tab PO DAILY Aspir 81 (Aspirin) 81 Mg Tablet. 1 Tab PO DAILY Prednisone 2.5 Mg Tablet 2 Tab PO DAILY Leflunomide 20 Mg Tablet 20 Mg PO DAILY Protonix (Pantoprazole Sodium) 40 Mg Granpkt. 40 Mg PO DAILY Vitamin D3 (Cholecalciferol (Vitamin D3)) 1,000 Unit Tablet 2 Tab PO DAILY Carvedilol 12.5 Mg Tablet 1 Tab PO BID Prograf (Tacrolimus) 1 Mg Capsule 0.5 Mg PO QHS Prograf (Tacrolimus) 1 Mg Capsule 1 Mg PO DAILY Iron (Ferrous Sulfate) 325 Mg Capsule.er 325 Mg PO QODAY Zofran Odt (Ondansetron) 4 Mg Tab.rapdis 1 Tab SL Q6HRS Vitals/I & O Vital Sign - Last 24 Hours 03/30/17 03/30/17 03/30/17 03/30/17 11:30 12:00 12:12 15:58 Temp 98.4 98.8 98.4 98.8 Pulse 70 71 71 Resp 20 18 17 B/P (MAP) 190/86 (120) 228/101 (143) Pulse Ox 95 93 95 95 O2 Delivery Room Air Room Air Room Air 03/30/17 03/30/17 03/30/17 03/30/17 16:21 18:50 19:00 20:00 Temp 97.7 97.7 Pulse 71 71 79 Resp 16 B/P (MAP) 228/101 228/101 177/89 (118) Pulse Ox 92 O2 Delivery Room Air Room Air 03/30/17 03/30/17 03/30/17 03/30/17 21:08 21:08 21:09 23:00 Temp 96.3 96.3 Pulse 74 74 74 68 Resp 16 B/P (MAP) 177/89 177/89 177/89 122/58 (79) Pulse Ox 92 O2 Delivery Room Air 03/31/17 03/31/17 03/31/17 03/31/17 03:00 06:29 07:00 07:00 Temp 96.1 97.5 96.1 97.5 Pulse 71 76 79 Resp 17 B/P (MAP) 166/79 (108) 166/79 142/74 (96) Pulse Ox 95 93 O2 Delivery Room Air Room Air Room Air 03/31/17 03/31/17 03/31/17 09:09 09:09 09:09 Pulse 79 79 79 B/P (MAP) 142/74 142/74 142/74 Intake and Output 03/30/17 03/30/17 03/31/17 15:00 23:00 07:00 Intake Total 457 ml 176 ml Balance 457 ml 176 ml ROBBIN BECKER MD March 31, 2017 11:09
[2017-03-31] MEDS: LEFLUNOMIDE 10 MG TABLET. PO SCH (11:28)
[2017-03-31] MEDS: MYCOPHENOLATE MOFETIL 250 MG CAPSULE. PO SCH (11:28)
[2017-03-31] MEDS: TACROLIMUS 1 MG CAPSULE PO SCH (11:28)
--- NOTE | 2017-03-31 12:45 | PDOC2 ---
CONSULT Date of Consult Date of Consult DATE: 03/31/17 TIME: 12:37 Reason for Consult Reason for Consult: SOB and chest pain Referring Physician Referring Physician: Dr. Lema Identification/Chief Complaint Chief Complaint SOB Source Source: Chart review, Patient History of Present Illness Reason for Visit: The patient is a 81-year-old female who was discharged from [facility] approximately 10 days ago after an admission for a poorly shortness of breath. Patient reports a workup was performed including a cardiac workup. She also reports a renal biopsy was performed secondary to a history of a renal transplant. She was discharged to a usp. She then followed up with the transplant service 4 days ago and they adjusted her transplant medications. She was sent from the [facility]p to the emergency room at [place] secondary to episodes of increasing shortness of breath and some chest discomfort. Her discomfort has now resolved. Her EKG shows no acute changes. Troponins have not significant elevated to happen 0.05, 0.06, and 0.03 in the setting of a creatinine of 1.5. A VQ scan has been performed which was low probability for a pulmonary embolism. Chest x-ray shows possible small left- sided pleural effusion. The patient is resting comfortably in bed. Past Medical History Cardiovascular: CHF, HTN, Hyperlipidemia GI: GERD Musculoskeletal: Osteoarthritis Past Surgical History Past Surgical History: Total hip replacement, Hysterectomy, Other (kidney transplant) Family History Family History: No Significant Social History No ALCOHOL: none Current Problem List Problem List Problems Medical Problems: (1) Chest pain Status: Acute (2) Elevated brain natriuretic peptide (BNP) level Status: Acute (3) Elevated d-dimer Status: Acute (4) Renal insufficiency Status: Acute Current Medications Current Medications Current Medications Fentanyl Citrate (Fentanyl 2ml Vial) 50 mcg 1X ONCE IV Last administered on 10:06; Start 03/30/17 at 10:15; Stop 03/30/17 at 10:16; Status DC Albuterol/ Ipratropium (Duoneb) 3 ml 1X ONCE NEB Last administered on 10:03; Start 03/30/17 at 10:15; Stop 03/30/17 at 10:16; Status DC Heparin Sodium (Porcine) (Heparin 5,000 Units/1,000ml NS) 4,000 unit 1X ONCE IV ; Start 03/30/17 at 10:45; Stop 03/30/17 at 10:46; Status Cancel Heparin Sodium/ Dextrose 500 ml @ 0 mls/hr 1X ONCE IV Last administered on 11:38; Start 03/30/17 at 10:45; Stop 03/30/17 at 10:52; Status DC Ondansetron HCl (Zofran) 4 mg PRN Q8HRS PRN IV NAUSEA/VOMITING; Start 03/30/17 at 10:45; Stop 03/31/17 at 10:44; Status DC Fentanyl Citrate (Fentanyl 2ml Vial) 50 mcg PRN Q1HR PRN IV PAIN; Start at 10:45; Stop 03/31/17 at 10:44; Status DC Heparin Sodium (Porcine) (Heparin Sodium) 10,000 unit STK-MED ONCE .ROUTE ; Start 03/30/17 at 11:15; Stop 03/30/17 at 11:16; Status DC Heparin Sodium (Porcine) (Heparin Sodium) 4,000 unit 1X ONCE IV Last administered on 03/30/17 11:41; Start 03/30/17 at 11:45; Stop 03/30/17 at 11:46 ; Status DC Acetaminophen (Tylenol) 325 mg Q6HRS PO Last administered on 03/31/17 06:29; Start 03/30/17 at 18:00 Aspirin (Ecotrin) 81 mg DAILY PO Last administered on 03/31/17 09:08; Start at 09:00 Atorvastatin Calcium (Lipitor) 10 mg HS PO Last administered on 03/30/17 21:09 ; Start 03/30/17 at 21:00 Bisacodyl (Dulcolax Supp) 10 mg PRN DAILY PRN RC CONSTIPATION; Start 03/30/17 at 14:30 Carvedilol (Coreg) 12.5 mg BIDWMEALS PO Last administered on 03/31/17 09:09; Start 03/30/17 at 17:00 Vitamin D (Vitamin D3) 2,000 unit DAILY PO Last administered on 03/31/17 09:08 ; Start 03/31/17 at 09:00 Clonidine HCl (Catapres) 0.2 mg TID PO Last administered on 03/31/17 09:09; Start 03/30/17 at 21:00 Acetaminophen/ Hydrocodone Bitart (Lortab 7.5/325) 1 tab PRN Q6HRS PRN PO PAIN ; Start 03/30/17 at 14:30 Ondansetron HCl (Zofran Odt) 4 mg Q6HRS PO Last administered on 03/31/17 06:28 ; Start 03/30/17 at 18:00 Propranolol HCl (Inderal) 10 mg BID PO Last administered on 03/31/17 09:09; Start 03/30/17 at 21:00 Tacrolimus (Prograf) 0.5 mg QHS PO Last administered on 03/30/17 21:09; Start 03/30/17 at 21:00 Tacrolimus (Prograf) 1 mg DAILY PO Last administered on 03/31/17 11:28; Start 03/31/17 at 09:00 Ferrous Sulfate (Feosol) 325 mg DAILYWBKFT PO Last administered on 03/31/17 09 :08; Start 03/31/17 at 08:00 Hydralazine HCl (Apresoline) 100 mg Q8HRS PO Last administered on 03/31/17 06: 29; Start 03/30/17 at 22:00 Leflunomide (Arava) 20 mg DAILY PO Last administered on 03/31/17 11:28; Start 03/30/17 at 16:30 Mycophenolate Mofetil (Cellcept) 500 mg DAILY PO Last administered on 11:28; Start 03/30/17 at 16:30 Pantoprazole Sodium (Protonix) 40 mg DAILYAC PO Last administered on 03/31/17 09:08; Start 03/30/17 at 16:30 Prednisone (Prednisone) 5 mg DAILY PO Last administered on 03/31/17 09:08; Start 03/30/17 at 16:30 Furosemide (Lasix) 40 mg 1X ONCE IVP Last administered on 03/30/17 16:21; Start 03/30/17 at 16:30; Stop 03/30/17 at 16:31; Status DC Hydralazine HCl (Apresoline) 10 mg PRN Q4HRS PRN IVP ELEVATED BP, SEE COMMENTS Last administered on 03/30/17 16:21; Start 03/30/17 at 16:00 Heparin Sodium/ Dextrose 500 ml @ 0 mls/hr CONT PRN IV SEE I/O RECORD; Start at 16:45 Heparin Sodium (Porcine) (Heparin Sodium) 1,950 unit PRN Q6HRS PRN IV FOR UFH LEVEL LESS THAN 0.2; Start 03/30/17 at 16:45 Active Scripts Active Reported Dulcolax (Bisacodyl) 10 Mg Supp.rect 10 Mg RC PRN DAILY PRN Tylenol (Acetaminophen) 325 Mg Tablet 325 Mg PO Q6HRS Atorvastatin Calcium 10 Mg Tablet 10 Mg PO HS Clonidine Hcl 0.2 Mg Tablet 1 Tab PO TID Hydrocodone-Apap 7.5-325 (Hydrocodone Bit/Acetaminophen) 1 Each Tablet 1 Tab PO PRN Q6HRS PRN Hydralazine Hcl 100 Mg Tablet 1 Tab PO Q8HRS Propranolol Hcl 10 Mg Tablet 1 Tab PO BID Cellcept (Mycophenolate Mofetil) 500 Mg Tablet 1 Tab PO DAILY Aspir 81 (Aspirin) 81 Mg Tablet.dr 1 Tab PO DAILY Prednisone 2.5 Mg Tablet 2 Tab PO DAILY Leflunomide 20 Mg Tablet 20 Mg PO DAILY Protonix (Pantoprazole Sodium) 40 Mg Granpkt.dr 40 Mg PO DAILY Vitamin D3 (Cholecalciferol (Vitamin D3)) 1,000 Unit Tablet 2 Tab PO DAILY Carvedilol 12.5 Mg Tablet 1 Tab PO BID Prograf (Tacrolimus) 1 Mg Capsule 0.5 Mg PO QHS Prograf (Tacrolimus) 1 Mg Capsule 1 Mg PO DAILY Iron (Ferrous Sulfate) 325 Mg Capsule.er 325 Mg PO QODAY Zofran Odt (Ondansetron) 4 Mg Tab.rapdis 1 Tab SL Q6HRS Allergies Allergies: Coded Allergies: Iodine and Iodide Containing Produc (Verified Allergy, Intermediate, ) adhesive tape (Verified Allergy, Intermediate, RASH, 03/30/17) clarithromycin (Verified Allergy, Intermediate, 03/30/17) erythromycin base (Verified Allergy, Intermediate, 03/30/17) latex (Verified Allergy, Intermediate, RASH, 03/30/17) levofloxacin (Verified Allergy, Intermediate, 03/30/17) povidone-iodine (Verified Allergy, Intermediate, 03/30/17) soap (Verified Allergy, Intermediate, 03/30/17) ROS General: YES: Fatigue Respiratory: YES: Shortness of breath Cardiovascular: yes Chest Pain Physical Exam General: No acute distress HEENT: Atraumatic Lungs: Other (slightly decreased breath sounds) Heart: Regular rate Abdomen: Normal bowel sounds Vitals VITALS Vital Signs Date Time Temp Pulse Resp B/P (MAP) Pulse Ox O2 Delivery O2 Flow Rate FiO2 03/31/17 11:00 97.9 79 20 100/45 (63) 93 Room Air 97.9 Labs Labs Laboratory Tests Test 03/30/17 09:50 03/30/17 10:40 03/30/17 16:40 03/30/17 21:45 White Blood Count 4.0 x10^3/uL (4.0-11.0) Red Blood Count 3.53 x10^6/uL (3.50-5.40) Hemoglobin 10.7 g/dL (12.0-15.5) Hematocrit 31.7 % (36.0-47.0) Mean Corpuscular Volume 90 fL (79-100) Mean Corpuscular Hemoglobin 30 pg (25-35) Mean Corpuscular Hemoglobin Concent 34 g/dL (31-37) Red Cell Distribution Width 15.9 % (11.5-14.5) Platelet Count 216 x10^3/uL (140-400) Neutrophils (%) (Auto) 62 % (31-73) Lymphocytes (%) (Auto) 26 % (24-48) Monocytes (%) (Auto) 8 % (0-9) Eosinophils (%) (Auto) 3 % (0-3) Basophils (%) (Auto) 2 % (0-3) Neutrophils # (Auto) 2.5 x10^3uL (1.8-7.7) Lymphocytes # (Auto) 1.1 x10^3/uL (1.0-4.8) Monocytes # (Auto) 0.3 x10^3/uL (0.0-1.1) Eosinophils # (Auto) 0.1 x10^3/uL (0.0-0.7) Basophils # (Auto) 0.1 x10^3/uL (0.0-0.2) Prothrombin Time 12.5 SEC (11.7-14.0) Prothromb Time International Ratio 1.0 (0.8-1.1) Activated Partial Thromboplast Time 27 SEC (24-38) D-Dimer (Gauri) 3.95 ug/mlFEU (0.00-0.50) Sodium Level 141 mmol/L (136-145) Potassium Level 4.1 mmol/L (3.5-5.1) Chloride Level 107 mmol/L (98-107) Carbon Dioxide Level 25 mmol/L (21-32) Anion Gap 9 (6-14) Blood Urea Nitrogen 33 mg/dL (7-20) Creatinine 1.5 mg/dL (0.6-1.0) Estimated GFR (Cockcroft-Gault) 33.5 BUN/Creatinine Ratio 22 (6-20) Glucose Level 130 mg/dL (70-99) Calcium Level 8.4 mg/dL (8.5-10.1) Magnesium Level 1.9 mg/dL (1.8-2.4) Total Bilirubin 0.5 mg/dL (0.2-1.0) Aspartate Amino Transf (AST/SGOT) 18 U/L (15-37) Alanine Aminotransferase (ALT/SGPT) 15 U/L (14-59) Alkaline Phosphatase 49 U/L (46-116) Creatine Kinase 23 U/L (26-192) Troponin I Quantitative 0.060 ng/mL (0.000-0.055) 0.053 ng/mL (0.000-0.055) IM-Bkr-S-Type Natriuretic Peptide 6608 pg/mL (0-449) Total Protein 4.2 g/dL (6.4-8.2) Albumin 1.9 g/dL (3.4-5.0) Albumin/Globulin Ratio 0.8 (1.0-1.7) Thyroid Stimulating Hormone (TSH) 4.019 uIU/mL (0.358-3.74) Urine Collection Type U cath Urine Color Yellow Urine Clarity Turbid Urine pH 5.5 Urine Specific [place] 1.025 Urine Protein >=300 mg/dL (NEG-TRACE) Urine Glucose (UA) 100 mg/dL (NEG) Urine Ketones (Stick) Negative mg/dL (NEG) Urine Blood Negative (NEG) Urine Nitrite Negative (NEG) Urine Bilirubin Negative (NEG) Urine Urobilinogen Dipstick 0.2 mg/dL (0.2 mg/dL) Urine Leukocyte Esterase Negative (NEG) Urine RBC 0 /HPF (0-2) Urine WBC 0 /HPF (0-4) Urine Amorphous Sediment Present /HPF Urine Bacteria Few /HPF (0-FEW) Urine Hyaline Casts Moderate /HPF Heparin Anti-Xa Act, Unfractionated 0.68 IU/mL (0.30-0.70) Test 03/30/17 22:50 03/31/17 04:36 03/31/17 10:35 Troponin I Quantitative 0.062 ng/mL (0.000-0.055) 0.037 ng/mL (0.000-0.055) White Blood Count 4.4 x10^3/uL (4.0-11.0) Red Blood Count 3.36 x10^6/uL (3.50-5.40) Hemoglobin 10.3 g/dL (12.0-15.5) Hematocrit 31.0 % (36.0-47.0) Mean Corpuscular Volume 92 fL (79-100) Mean Corpuscular Hemoglobin 31 pg (25-35) Mean Corpuscular Hemoglobin Concent 33 g/dL (31-37) Red Cell Distribution Width 16.5 % (11.5-14.5) Platelet Count 197 x10^3/uL (140-400) Neutrophils (%) (Auto) 70 % (31-73) Lymphocytes (%) (Auto) 21 % (24-48) Monocytes (%) (Auto) 7 % (0-9) Eosinophils (%) (Auto) 1 % (0-3) Basophils (%) (Auto) 1 % (0-3) Neutrophils # (Auto) 3.1 x10^3uL (1.8-7.7) Lymphocytes # (Auto) 0.9 x10^3/uL (1.0-4.8) Monocytes # (Auto) 0.3 x10^3/uL (0.0-1.1) Eosinophils # (Auto) 0.0 x10^3/uL (0.0-0.7) Basophils # (Auto) 0.1 x10^3/uL (0.0-0.2) Heparin Anti-Xa Act, Unfractionated 0.63 IU/mL (0.30-0.70) 0.35 IU/mL (0.30-0.70) Sodium Level 138 mmol/L (136-145) Potassium Level 4.3 mmol/L (3.5-5.1) Chloride Level 108 mmol/L (98-107) Carbon Dioxide Level 21 mmol/L (21-32) Anion Gap 9 (6-14) Blood Urea Nitrogen 36 mg/dL (7-20) Creatinine 1.5 mg/dL (0.6-1.0) Estimated GFR (Cockcroft-Gault) 33.5 Glucose Level 130 mg/dL (70-99) Calcium Level 8.3 mg/dL (8.5-10.1) Magnesium Level 1.8 mg/dL (1.8-2.4) Laboratory Tests Test 03/30/17 16:40 03/30/17 21:45 03/30/17 22:50 03/31/17 04:36 Troponin I Quantitative 0.053 ng/mL (0.000-0.055) 0.062 ng/mL (0.000-0.055) 0.037 ng/mL (0.000-0.055) Heparin Anti-Xa Act, Unfractionated 0.68 IU/mL (0.30-0.70) 0.63 IU/mL (0.30-0.70) White Blood Count 4.4 x10^3/uL (4.0-11.0) Red Blood Count 3.36 x10^6/uL (3.50-5.40) Hemoglobin 10.3 g/dL (12.0-15.5) Hematocrit 31.0 % (36.0-47.0) Mean Corpuscular Volume 92 fL (79-100) Mean Corpuscular Hemoglobin 31 pg (25-35) Mean Corpuscular Hemoglobin Concent 33 g/dL (31-37) Red Cell Distribution Width 16.5 % (11.5-14.5) Platelet Count 197 x10^3/uL (140-400) Neutrophils (%) (Auto) 70 % (31-73) Lymphocytes (%) (Auto) 21 % (24-48) Monocytes (%) (Auto) 7 % (0-9) Eosinophils (%) (Auto) 1 % (0-3) Basophils (%) (Auto) 1 % (0-3) Neutrophils # (Auto) 3.1 x10^3uL (1.8-7.7) Lymphocytes # (Auto) 0.9 x10^3/uL (1.0-4.8) Monocytes # (Auto) 0.3 x10^3/uL (0.0-1.1) Eosinophils # (Auto) 0.0 x10^3/uL (0.0-0.7) Basophils # (Auto) 0.1 x10^3/uL (0.0-0.2) Sodium Level 138 mmol/L (136-145) Potassium Level 4.3 mmol/L (3.5-5.1) Chloride Level 108 mmol/L (98-107) Carbon Dioxide Level 21 mmol/L (21-32) Anion Gap 9 (6-14) Blood Urea Nitrogen 36 mg/dL (7-20) Creatinine 1.5 mg/dL (0.6-1.0) Estimated GFR (Cockcroft-Gault) 33.5 Glucose Level 130 mg/dL (70-99) Calcium Level 8.3 mg/dL (8.5-10.1) Magnesium Level 1.8 mg/dL (1.8-2.4) Test 03/31/17 10:35 Heparin Anti-Xa Act, Unfractionated 0.35 IU/mL (0.30-0.70) Images Images Low probability VQ scan. Small left-sided pleural effusion on chest x-ray Assessment/Plan Assessment/Plan 1. Shortness of breath and chest discomfort. VQ scan is low probability. EKG shows no acute changes. No significant elevation in troponin. Patient reports a previous workup by cardiology at [facility] on her most recent admission. At this time the patient appears clinically stable from a cardiac viewpoint. We will check an echocardiogram today to rule out wall motion abnormalities. If echocardiogram shows no significant maladies the patient may be discharged from a cardiac viewpoint back to her nursing facility. 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 2. Renal transplant. Renal consult is pending. The patient is followed by the [facility] transplant service. 3. Hypertension. Patient's blood pressures are better control. Continue treatment. 4. Possible mild heart failure. This also appears to be resolved. Previous cardiac workup as noted above. We'll check an echocardiogram today. Thank you for allowing us to participate the care of your patient. KARSON WILLIAM MD March 31, 2017 12:45
[2017-03-31 14:39] VITALS: BP 122/63
--- NOTE | 2017-03-31 15:43 | PDOC3 ---
Discharge Summary* Date of Discharge: April 01, 2017 Admitting Diagnosis Problems Medical Problems: (1) Chest pain Status: Acute (2) Elevated brain natriuretic peptide (BNP) level Status: Acute (3) Elevated d-dimer Status: Acute (4) Renal insufficiency Status: Acute Final Diagnosis 1. Chest pain, Possible MSK related.: ACS ruled out, Echo normal LVEF 2. Elevated D-dimer. VQ negative, 3. Renal insufficiency with hx of renal transplant. stable renal functions, 4. Elevated BNP. 5. Elevated troponin. 6. Accelerated HTN stable now Brief Hospital Course Ms. 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 Exam see my progress notes. Disposition/Orders: D/C to Another Facility Diet: Renal Scheduled Acetaminophen (Tylenol), 325 MG PO Q6HRS, (Reported) Aspirin (Aspir 81), 1 TAB PO DAILY, (Reported) Atorvastatin Calcium (Atorvastatin Calcium), 10 MG PO HS, (Reported) Carvedilol (Carvedilol), 1 TAB PO BID, (Reported) Cholecalciferol (Vitamin D3) (Vitamin D3), 2 TAB PO DAILY, (Reported) Clonidine Hcl (Clonidine Hcl), 1 TAB PO TID, (Reported) Ferrous Sulfate (Iron), 325 MG PO QODAY, (Reported) Hydralazine Hcl (Hydralazine Hcl), 1 TAB PO Q8HRS, (Reported) Leflunomide (Leflunomide), 20 MG PO DAILY, (Reported) Mycophenolate Mofetil (Cellcept), 1 TAB PO DAILY, (Reported) Ondansetron (Zofran Odt), 1 TAB SL Q6HRS, (Reported) Pantoprazole Sodium (Protonix), 40 MG PO DAILY, (Reported) Prednisone (Prednisone), 2 TAB PO DAILY, (Reported) Propranolol Hcl (Propranolol Hcl), 1 TAB PO BID, (Reported) Tacrolimus (Prograf), 1 MG PO DAILY, (Reported) Tacrolimus (Prograf), 0.5 MG PO QHS, (Reported) Scheduled PRN Bisacodyl (Dulcolax), 10 MG RC PRN DAILY PRN for CONSTIPATION, (Reported) Hydrocodone Bit/Acetaminophen (Hydrocodone-Apap 7.5-325 ), 1 TAB PO PRN Q6HRS PRN for PAIN, (Reported) FOLLOW UP APPOINTMENT: PCP AND NEPHROLOGY SCHEDULED. Time Spent Total time spent with patient 32 minutes for coordination of care, counseling, and education. ROBBIN BECKER MD March 31, 2017 15:43
--- NOTE | 2017-03-31 17:21 | CARD ---
APPROVED REPORT EXAM: Two-dimensional and M-mode echocardiogram with Doppler and color Doppler. Other Information Quality : Average INDICATION Chest Pain 2D DIMENSIONS Left Atrium(2D)3.1 (1.6-4.0cm)IVSd1.6 (0.7-1.1cm) Aortic Root(2D)3.3 (2.0-3.7cm)LVDd3.3 (3.9-5.9cm) LVOT Diameter1.8 (1.8-2.4cm)PWd1.5 (0.7-1.1cm) LVDs2.2 (2.5-4.0cm)FS (%) 32.2 % SV27.2 mlLVEF(%)61.7 (>50%) Aortic Valve AoV Peak Marvin.209.2cm/sAoV VTI40.2cm AO Peak GR.17.5mmHgLVOT VTI 27.63cm AO Mean GR.11mmHg Mitral Valve MV E Atciokwl04.4cm/sMV DECEL [id number] MV A Mttkqxiz726.2cm/sE/A Ratio0.7 MV A [id number] TDI Lateral E' P. V4.96cm/sMedial E' P. V4.31cm/s E/Lateral E'14.2E/Medial E'16.3 Tricuspid Valve TR P. Fvbxupzv244tb/sRAP [id number] TR Peak Gr.18mmHg LEFT VENTRICLE The left ventricle is normal size. There is moderate to moderately severe concentric left ventricular hypertrophy. Left ventricle systolic function is normal. The Ejection Fraction is >55%. Transmitral Doppler flow pattern is abnormal. RIGHT VENTRICLE The right ventricle is normal size. There is normal right ventricular wall thickness. The right ventr icular systolic function is normal. ATRIA The left atrium size is normal. The right atrium size is normal. The interatrial septum is intact wit h no evidence for an atrial septal defect or patent foramen ovale as noted on 2-D or Doppler imaging. AORTIC VALVE The aortic valve is normal in structure and function. Doppler and Color Flow revealed no significant aortic regurgitation. There is no significant aortic valvular stenosis. MITRAL VALVE The mitral valve is normal in structure and function. There is no mitral valve stenosis. Doppler and Color-flow revealed trace mitral regurgitation. TRICUSPID VALVE The tricuspid valve is normal in structure and function. Doppler and Color Flow revealed trace tricus pid regurgitation. The PA pressure was estimated at 21 mmHg. There is no tricuspid valve stenosis. PULMONIC VALVE The pulmonary valve is normal in structure and function. Doppler and Color Flow revealed trace pulmon ic valvular regurgitation. There is no pulmonic valvular stenosis. GREAT VESSELS The aortic root is normal in size. Normal pulmonary venous flow (Doppler). The IVC is normal in size and collapses >50% with inspiration. PERICARDIAL EFFUSION There is no evidence of significant pericardial effusion. Critical Notification Critical Value: No <Conclusion> The left ventricle is normal size. Left ventricle systolic function is normal. The Ejection Fraction is >55%. There is moderate to moderately severe concentric left ventricular hypertrophy. There is no significant aortic valvular stenosis. Doppler and Color Flow revealed no significant aortic regurgitation. Doppler and Color-flow revealed trace mitral regurgitation. Doppler and Color Flow revealed trace tricuspid regurgitation. The PA pressure was estimated at 21 mmHg. There is no evidence of significant pericardial effusion.
[2017-03-31 19:30] VITALS: BP 104/56
--- NOTE | 2017-03-31 20:10 | EKG ---
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
[2017-03-31] MEDS: ATORVASTATIN CALCIUM 10 MG TABLET. PO SCH (21:02)
[2017-03-31] MEDS: TACROLIMUS 0.5 MG CAPSULE PO SCH (21:02)
[2017-03-31 23:30] VITALS: BP 131/62
[2017-04-01 03:30] VITALS: BP 172/80
[2017-04-01 04:04] LABS: CREATININE 1.8 mg/dL (0.6-1.0); GFR 27.1; POTASSIUM 4.5 mmol/L (3.5-5.1)
[2017-04-01] MEDS: ACETAMINOPHEN 325 MG TABLET. PO SCH ×3 (05:55→12:26)
[2017-04-01] MEDS: ONDANSETRON ODT 4 MG TAB.RAPDIS. PO SCH ×3 (05:55→12:26)
[2017-04-01 07:00] VITALS: BP 186/80
[2017-04-01] MEDS: CHOLECALCIFEROL (VITAMIN D3) 1,000 UNIT TABLET PO SCH (09:21)
[2017-04-01] MEDS: MYCOPHENOLATE MOFETIL 250 MG CAPSULE. PO SCH (09:21)
[2017-04-01] MEDS: ASPIRIN ENTERIC COATED 81 MG TABLET.DR. PO SCH (09:21)
[2017-04-01] MEDS: PROPRANOLOL 10 MG TABLET. PO SCH (09:22)
[2017-04-01] MEDS: FERROUS SULFATE 325 MG TABLET. PO SCH (09:22)
[2017-04-01] MEDS: predniSONE 5 MG TABLET PO SCH (09:22)
[2017-04-01] MEDS: PANTOPRAZOLE 40 MG TABLET.DR. PO SCH (09:22)
[2017-04-01] MEDS: TACROLIMUS 1 MG CAPSULE PO SCH (09:23)
[2017-04-01] MEDS: cloNIDine HCL 0.2 MG TABLET PO SCH ×2 (09:23→14:59)
[2017-04-01] MEDS: CARVEDILOL 12.5 MG TABLET. PO SCH (09:23)
[2017-04-01] MEDS: LEFLUNOMIDE 10 MG TABLET. PO SCH (09:23)
--- NOTE | 2017-04-01 10:49 | PDOC ---
Renal-Progress Notes Subjective Notes Notes NO NEW COMPLAINTS History of Present Illness Hx of present illness STABLE Vitals Vitals Vital Signs Date Time Temp Pulse Resp B/P (MAP) Pulse Ox O2 Delivery O2 Flow Rate FiO2 04/01/17 09:23 76 186/80 04/01/17 07:00 98.0 17 93 Room Air 98.0 Weight Weight [ ] I.O. Intake and Output Intake and Output 04/01/17 07:00 Intake Total 1340 ml Balance 1340 ml Intake Oral 1340 ml # Voids 4 # Bowel Movements 2 Labs Labs Laboratory Tests Test 04/01/17 03:10 Sodium Level 138 mmol/L (136-145) Potassium Level 4.5 mmol/L (3.5-5.1) Chloride Level 108 mmol/L (98-107) Carbon Dioxide Level 24 mmol/L (21-32) Anion Gap 6 (6-14) Blood Urea Nitrogen 39 mg/dL (7-20) Creatinine 1.8 mg/dL (0.6-1.0) Estimated GFR (Cockcroft-Gault) 27.1 Glucose Level 116 mg/dL (70-99) Calcium Level 8.0 mg/dL (8.5-10.1) Review of Systems Constitutional: yes: alert, oriented Ears/Nose/Throat: Yes: no symptom reported Eyes: Yes: no symptom reported Pulmonary: Yes no symptom reported Gastrointestional: Yes: no symptom reported Genitourinary: Yes: no symptom reported Skin: Yes no symptom reported Physical Exam General Appearance: no apparent distress Skin: warm Respiratory: decreased breath sounds Heart: S1S2, RRR Abdomen: soft, bowel sounds present Extremities: pulses present Neurology: alert, oriented Assessment Assessment IMP CHEST PAIN-NO AMI RENAL TX-CR STABLE IN THE 1.5-2.0 RANGE PLAN OK TO D/C CONT SAME TX MEDS BRIAN MEDINA MD April 01, 2017 10:49
[2017-04-01 11:23] VITALS: BP 139/66
--- NOTE | 2017-04-01 11:40 | PDOC ---
PROGRESS NOTES Chief Complaint Chief Complaint 1. Chest pain, chest pressure, unclear etiology. Possible differentials Other differential diagnosis gastritis and esophageal dysmotility. ACS Ruled out , Echo pending, cardiology following. 2. Elevated D-dimer: VQ Negative, 3. Renal insufficiency: stable renal functions, DC planning today 4. Elevated BNP. 5. Physical debility: need SNU placement, d/w , agree with current paln. 6. HTN: Stable Vitals Vitals Vital Signs Date Time Temp Pulse Resp B/P (MAP) Pulse Ox O2 Delivery O2 Flow Rate FiO2 04/01/17 11:23 98.2 75 18 139/66 (90) 92 Room Air 98.2 Physical Exam General: Alert, Oriented X3, No acute distress Heart: Regular rate, Normal S1 Lungs: Clear Abdomen: Normal bowel sounds Extremities: No clubbing, Other (BILATERAL LE EDEMA WHICH IS CHRONIC) Labs LABS Laboratory Tests Test 04/01/17 03:10 Sodium Level 138 mmol/L (136-145) Potassium Level 4.5 mmol/L (3.5-5.1) Chloride Level 108 mmol/L (98-107) Carbon Dioxide Level 24 mmol/L (21-32) Anion Gap 6 (6-14) Blood Urea Nitrogen 39 mg/dL (7-20) Creatinine 1.8 mg/dL (0.6-1.0) Estimated GFR (Cockcroft-Gault) 27.1 Glucose Level 116 mg/dL (70-99) Calcium Level 8.0 mg/dL (8.5-10.1) Assessment and Plan Assessmemt and Plan Problems Medical Problems: (1) Chest pain Status: Acute (2) Elevated brain natriuretic peptide (BNP) level Status: Acute (3) Elevated d-dimer Status: Acute (4) Renal insufficiency Status: Acute Problems: Comment Review of Relevant I have reviewed the following items manav (where applicable) has been applied. Labs Laboratory Tests Test 03/30/17 16:40 03/30/17 21:45 03/30/17 22:50 03/31/17 04:36 Troponin I Quantitative 0.053 ng/mL (0.000-0.055) 0.062 ng/mL (0.000-0.055) 0.037 ng/mL (0.000-0.055) Heparin Anti-Xa Act, Unfractionated 0.68 IU/mL (0.30-0.70) 0.63 IU/mL (0.30-0.70) White Blood Count 4.4 x10^3/uL (4.0-11.0) Red Blood Count 3.36 x10^6/uL (3.50-5.40) Hemoglobin 10.3 g/dL (12.0-15.5) Hematocrit 31.0 % (36.0-47.0) Mean Corpuscular Volume 92 fL (79-100) Mean Corpuscular Hemoglobin 31 pg (25-35) Mean Corpuscular Hemoglobin Concent 33 g/dL (31-37) Red Cell Distribution Width 16.5 % (11.5-14.5) Platelet Count 197 x10^3/uL (140-400) Neutrophils (%) (Auto) 70 % (31-73) Lymphocytes (%) (Auto) 21 % (24-48) Monocytes (%) (Auto) 7 % (0-9) Eosinophils (%) (Auto) 1 % (0-3) Basophils (%) (Auto) 1 % (0-3) Neutrophils # (Auto) 3.1 x10^3uL (1.8-7.7) Lymphocytes # (Auto) 0.9 x10^3/uL (1.0-4.8) Monocytes # (Auto) 0.3 x10^3/uL (0.0-1.1) Eosinophils # (Auto) 0.0 x10^3/uL (0.0-0.7) Basophils # (Auto) 0.1 x10^3/uL (0.0-0.2) Sodium Level 138 mmol/L (136-145) Potassium Level 4.3 mmol/L (3.5-5.1) Chloride Level 108 mmol/L (98-107) Carbon Dioxide Level 21 mmol/L (21-32) Anion Gap 9 (6-14) Blood Urea Nitrogen 36 mg/dL (7-20) Creatinine 1.5 mg/dL (0.6-1.0) Estimated GFR (Cockcroft-Gault) 33.5 Glucose Level 130 mg/dL (70-99) Calcium Level 8.3 mg/dL (8.5-10.1) Magnesium Level 1.8 mg/dL (1.8-2.4) Test 03/31/17 10:35 04/01/17 03:10 Heparin Anti-Xa Act, Unfractionated 0.35 IU/mL (0.30-0.70) Sodium Level 138 mmol/L (136-145) Potassium Level 4.5 mmol/L (3.5-5.1) Chloride Level 108 mmol/L (98-107) Carbon Dioxide Level 24 mmol/L (21-32) Anion Gap 6 (6-14) Blood Urea Nitrogen 39 mg/dL (7-20) Creatinine 1.8 mg/dL (0.6-1.0) Estimated GFR (Cockcroft-Gault) 27.1 Glucose Level 116 mg/dL (70-99) Calcium Level 8.0 mg/dL (8.5-10.1) Laboratory Tests Test 04/01/17 03:10 Sodium Level 138 mmol/L (136-145) Potassium Level 4.5 mmol/L (3.5-5.1) Chloride Level 108 mmol/L (98-107) Carbon Dioxide Level 24 mmol/L (21-32) Anion Gap 6 (6-14) Blood Urea Nitrogen 39 mg/dL (7-20) Creatinine 1.8 mg/dL (0.6-1.0) Estimated GFR (Cockcroft-Gault) 27.1 Glucose Level 116 mg/dL (70-99) Calcium Level 8.0 mg/dL (8.5-10.1) Medications Current Medications Fentanyl Citrate (Fentanyl 2ml Vial) 50 mcg 1X ONCE IV Last administered on 10:06; Start 03/30/17 at 10:15; Stop 03/30/17 at 10:16; Status DC Albuterol/ Ipratropium (Duoneb) 3 ml 1X ONCE NEB Last administered on 10:03; Start 03/30/17 at 10:15; Stop 03/30/17 at 10:16; Status DC Heparin Sodium (Porcine) (Heparin 5,000 Units/1,000ml NS) 4,000 unit 1X ONCE IV ; Start 03/30/17 at 10:45; Stop 03/30/17 at 10:46; Status Cancel Heparin Sodium/ Dextrose 500 ml @ 0 mls/hr 1X ONCE IV Last administered on 11:38; Start 03/30/17 at 10:45; Stop 03/30/17 at 10:52; Status DC Ondansetron HCl (Zofran) 4 mg PRN Q8HRS PRN IV NAUSEA/VOMITING; Start 03/30/17 at 10:45; Stop 03/31/17 at 10:44; Status DC Fentanyl Citrate (Fentanyl 2ml Vial) 50 mcg PRN Q1HR PRN IV PAIN; Start at 10:45; Stop 03/31/17 at 10:44; Status DC Heparin Sodium (Porcine) (Heparin Sodium) 10,000 unit STK-MED ONCE .ROUTE ; Start 03/30/17 at 11:15; Stop 03/30/17 at 11:16; Status DC Heparin Sodium (Porcine) (Heparin Sodium) 4,000 unit 1X ONCE IV Last administered on 03/30/17 11:41; Start 03/30/17 at 11:45; Stop 03/30/17 at 11:46 ; Status DC Acetaminophen (Tylenol) 325 mg Q6HRS PO Last administered on 04/01/17 05:55; Start 03/30/17 at 18:00 Aspirin (Ecotrin) 81 mg DAILY PO Last administered on 04/01/17 09:21; Start at 09:00 Atorvastatin Calcium (Lipitor) 10 mg HS PO Last administered on 03/31/17 21:02 ; Start 03/30/17 at 21:00 Bisacodyl (Dulcolax Supp) 10 mg PRN DAILY PRN RC CONSTIPATION; Start 03/30/17 at 14:30 Carvedilol (Coreg) 12.5 mg BIDWMEALS PO Last administered on 04/01/17 09:23; Start 03/30/17 at 17:00 Vitamin D (Vitamin D3) 2,000 unit DAILY PO Last administered on 04/01/17 09:21 ; Start 03/31/17 at 09:00 Clonidine HCl (Catapres) 0.2 mg TID PO Last administered on 04/01/17 09:23; Start 03/30/17 at 21:00 Acetaminophen/ Hydrocodone Bitart (Lortab 7.5/325) 1 tab PRN Q6HRS PRN PO PAIN ; Start 03/30/17 at 14:30 Ondansetron HCl (Zofran Odt) 4 mg Q6HRS PO Last administered on 04/01/17 05:55 ; Start 03/30/17 at 18:00 Propranolol HCl (Inderal) 10 mg BID PO Last administered on 04/01/17 09:22; Start 03/30/17 at 21:00 Tacrolimus (Prograf) 0.5 mg QHS PO Last administered on 03/31/17 21:02; Start 03/30/17 at 21:00 Tacrolimus (Prograf) 1 mg DAILY PO Last administered on 04/01/17 09:23; Start 03/31/17 at 09:00 Ferrous Sulfate (Feosol) 325 mg DAILYWBKFT PO Last administered on 04/01/17 09 :22; Start 03/31/17 at 08:00 Hydralazine HCl (Apresoline) 100 mg Q8HRS PO Last administered on 04/01/17 05: 55; Start 03/30/17 at 22:00 Leflunomide (Arava) 20 mg DAILY PO Last administered on 04/01/17 09:23; Start 03/30/17 at 16:30 Mycophenolate Mofetil (Cellcept) 500 mg DAILY PO Last administered on 09:21; Start 03/30/17 at 16:30 Pantoprazole Sodium (Protonix) 40 mg DAILYAC PO Last administered on 04/01/17 09:22; Start 03/30/17 at 16:30 Prednisone (Prednisone) 5 mg DAILY PO Last administered on 04/01/17 09:22; Start 03/30/17 at 16:30 Furosemide (Lasix) 40 mg 1X ONCE IVP Last administered on 03/30/17 16:21; Start 03/30/17 at 16:30; Stop 03/30/17 at 16:31; Status DC Hydralazine HCl (Apresoline) 10 mg PRN Q4HRS PRN IVP ELEVATED BP, SEE COMMENTS Last administered on 03/30/17 16:21; Start 03/30/17 at 16:00 Heparin Sodium/ Dextrose 500 ml @ 0 mls/hr CONT PRN IV SEE I/O RECORD; Start at 16:45; Stop 04/01/17 at 11:26; Status DC Heparin Sodium (Porcine) (Heparin Sodium) 1,950 unit PRN Q6HRS PRN IV FOR UFH LEVEL LESS THAN 0.2; Start 03/30/17 at 16:45; Status Cancel Active Scripts Active Reported Dulcolax (Bisacodyl) 10 Mg Supp.rect 10 Mg RC PRN DAILY PRN Tylenol (Acetaminophen) 325 Mg Tablet 325 Mg PO Q6HRS Atorvastatin Calcium 10 Mg Tablet 10 Mg PO HS Clonidine Hcl 0.2 Mg Tablet 1 Tab PO TID Hydrocodone-Apap 7.5-325 (Hydrocodone Bit/Acetaminophen) 1 Each Tablet 1 Tab PO PRN Q6HRS PRN Hydralazine Hcl 100 Mg Tablet 1 Tab PO Q8HRS Propranolol Hcl 10 Mg Tablet 1 Tab PO BID Cellcept (Mycophenolate Mofetil) 500 Mg Tablet 1 Tab PO DAILY Aspir 81 (Aspirin) 81 Mg Tablet.dr 1 Tab PO DAILY Prednisone 2.5 Mg Tablet 2 Tab PO DAILY Leflunomide 20 Mg Tablet 20 Mg PO DAILY Protonix (Pantoprazole Sodium) 40 Mg Granpkt.dr 40 Mg PO DAILY Vitamin D3 (Cholecalciferol (Vitamin D3)) 1,000 Unit Tablet 2 Tab PO DAILY Carvedilol 12.5 Mg Tablet 1 Tab PO BID Prograf (Tacrolimus) 1 Mg Capsule 0.5 Mg PO QHS Prograf (Tacrolimus) 1 Mg Capsule 1 Mg PO DAILY Iron (Ferrous Sulfate) 325 Mg Capsule.er 325 Mg PO QODAY Zofran Odt (Ondansetron) 4 Mg Tab.rapdis 1 Tab SL Q6HRS Vitals/I & O Vital Sign - Last 24 Hours 03/31/17 03/31/17 03/31/17 03/31/17 14:25 14:26 14:39 17:49 Temp 98.0 98.0 Pulse 74 74 74 74 Resp 18 B/P (MAP) 122/63 122/68 122/63 (82) 122/63 Pulse Ox 94 O2 Delivery Room Air 03/31/17 03/31/17 03/31/17 03/31/17 19:30 20:25 21:02 21:03 Temp 97.8 97.8 Pulse 77 77 77 Resp 18 B/P (MAP) 104/56 (72) 104/56 104/56 Pulse Ox 93 O2 Delivery Room Air Room Air 03/31/17 03/31/17 04/01/17 04/01/17 21:04 23:30 03:30 05:55 Temp 97.5 98.2 97.5 98.2 Pulse 77 71 71 71 Resp 18 18 B/P (MAP) 104/56 131/62 (85) 172/80 (110) 172/80 Pulse Ox 94 95 O2 Delivery Room Air Room Air 04/01/17 04/01/17 04/01/17 04/01/17 07:00 08:00 09:22 09:23 Temp 98.0 98.0 Pulse 76 76 76 Resp 17 B/P (MAP) 186/80 (115) 186/80 186/80 Pulse Ox 93 O2 Delivery Room Air Room Air 04/01/17 04/01/17 09:23 11:23 Temp 98.2 98.2 Pulse 76 75 Resp 18 B/P (MAP) 186/80 139/66 (90) Pulse Ox 92 O2 Delivery Room Air Intake and Output 03/31/17 03/31/17 04/01/17 14:59 22:59 06:59 Intake Total 1100 ml 240 ml Balance 1100 ml 240 ml ROBBIN BECKER MD April 01, 2017 11:39
[2017-04-01 14:59] VITALS: BP 139/66
== END 2017-04-01 15:40 | DRG 293 ==
LOC: ER 11:06 → 2 NORTH 11:14
PROVIDERS: ADMIT Internal Medicine; ATTEND Internal Medicine
DX: I13.0 Hypertensive heart and chronic kidney disease with heart failure and stage 1 through stage 4 chronic kidney disease, or unspecified chronic kidney disease (principal); R07.89 Other chest pain; E78.00 Pure hypercholesterolemia, unspecified; E78.5 Hyperlipidemia, unspecified; I50.9 Heart failure, unspecified; K21.9 Gastro-esophageal reflux disease without esophagitis; Z96.643 Presence of artificial hip joint, bilateral; N28.9 Disorder of kidney and ureter, unspecified; I89.0 Lymphedema, not elsewhere classified; M19.90 Unspecified osteoarthritis, unspecified site; Z88.8 Allergy status to other drugs, medicaments and biological substances; Z88.1 Allergy status to other antibiotic agents; Z82.49 Family history of ischemic heart disease and other diseases of the circulatory system; Z79.52 Long term (current) use of systemic steroids; Z90.710 Acquired absence of both cervix and uterus; Z79.899 Other long term (current) drug therapy; Z79.1 Long term (current) use of non-steroidal anti-inflammatories (NSAID); Z79.82 Long term (current) use of aspirin; Z91.040 Latex allergy status; Z91.09 Other allergy status, other than to drugs and biological substances; Z87.440 Personal history of urinary (tract) infections; N18.3 Chronic kidney disease, stage 3 (moderate)
CPT/HCPCS: 36415; 71010; 78582; 80048; 80053; 81001; 82550; 83735; 83880; 84443; 84484; 85027; 85379; 85520; 85610; 85730; 93005; 93306; 94640; 96374; A9540; A9558; J0360; J1940; J3010; J7507; J7512; J7517; J7620; Q0162